=== PATIENT | male | born 1975 | race Caucasian/White ===

== ENCOUNTER 2021-07-21 07:53 | Emergency (ER) | payer MEDICARE, MEDICAID, SELFPAY ==
--- NOTE | ~2021-07-21 | US_ITS ---
EXAMINATION: US VENOUS ULTRASOUND WITH DOPPLER LOWER EXTREMITY, BILATERAL CLINICAL INFORMATION: Bilateral lower extremity pain and swelling. COMPARISON: None TECHNIQUE: Ultrasound of the deep veins is performed from the hip to the calf with compression sonography and color and pulse Doppler assessment. Spectral analysis with color-flow imaging is performed. FINDINGS: RIGHT: There is normal venous compression and respiratory variation and augmented flow. The visualized common femoral vein, superficial femoral vein, profunda femoral vein, popliteal vein, and the trifurcation region shows no evidence of deep venous thrombosis. There is no significant popliteal fossa cyst. Mild to moderate subcutaneous edema in the right calf. LEFT: There is normal venous compression and respiratory variation and augmented flow. The visualized common femoral vein, superficial femoral vein, profunda femoral vein, popliteal vein, and the trifurcation region shows no evidence of deep venous thrombosis. There is no significant popliteal fossa cyst. No significant soft tissue abnormality. If the patient's symptoms persist, followup ultrasound in 5 days 7 days might be of value to exclude proximal propagation from a non-visualized calf vein. US/US venous duplex LE BI IMPRESSION: No DVT demonstrated in the bilateral lower extremities.
--- NOTE | ~2021-07-21 | XR_ITS ---
EXAMINATION: XR CHEST CLINICAL INFORMATION: Lower extremity edema. COMPARISON: 09/13/2018 chest radiographs. TECHNIQUE: 2 views of the chest were obtained. FINDINGS: No significant abnormality is noted involving the heart, lungs, mediastinum, bony thorax or soft tissues. XR/XR chest 2V IMPRESSION: No acute cardiopulmonary process.
[2021-07-21 08:05] VITALS: BP 135/83; PULSE 81; RESP 18; TEMP 36.2; O2SAT 98; BMI 34.2
--- NOTE | 2021-07-21 08:18 | ED.GENADULT ---
HPI - General Adult General Chief complaint: Extremity Injury, Lower Stated complaint: both feet and legs swollen up to knees hands numb Time Seen by Provider: 07/21/21 08:18 Source: patient Mode of arrival: ambulatory Limitations: no limitations History of Present Illness HPI narrative: Patient is a 45 year old male presenting to the emergency department today with bilateral lower leg swelling and pain. Patient states that his mother in February 2021 and he has not been very active since. Patient states that he is a recovering IV drug user with his last use a couple weeks ago. Patient denies any cardiac history. Patient states that he does have Hepatitis. Patient denies any dizziness, lightheadedness, abdominal pain, nausea, vomiting, fever, chills, blurry vision, double vision, loss of vision, chest pain, difficulty breathing, shortness of breath, back pain, night sweats, pain with urination, increased urinary frequency, increased urinary urgency, blood in his urine or stool, syncope or a near syncopal episode, recent trauma or falls, bowel incontinence, bladder incontinence, bowel retention, bladder retention, or any other complaints at this time. Onset (ago): week(s) Location: left, right and lower extremity Radiation: non-radiation Severity: mild Severity scale (1-10): 3 Quality: dull Pain Consistency: constant Relieving factors: none Exacerbating factors: none Associated symptoms: denies other symptoms Treatments prior to arrival: none Related Data Allergies Allergy/AdvReac Type Severity Reaction Status Date / Time SEASONAL ALLERGIES Allergy Unknown UNKNOWN Uncoded 11/20/19 15:14 Review of Systems Constitutional: Constitutional: Reports no additional constitutional complaints, Denies chills, Denies fever(s) and Denies night sweats Eyes: Eyes: Reports no additional eye complaints, Denies blurry vision, Denies change in vision, Denies diplopia, Denies eye discharge, Denies loss of vision and Denies eye pain ENT: Denies dizziness Cardiovascular: Cardiovascular: Reports no additional cardiovascular complaints, Denies chest pain, Denies lightheadedness, Denies Loss of Consciousness and Denies dyspnea Comments: bilateral lower leg swelling Respiratory: Respiratory: Reports no additional respiratory complaints and Denies dyspnea Gastrointestinal: Gastrointestinal: Reports no additional gastrointestinal complaints, Denies abdominal pain, Denies melena, Denies hematochezia, Denies change in bowel habits and Denies change in stool character Genitourinary: Genitourinary: Reports no additional male genitourinary complaints, Denies hematuria, Denies oliguria, Denies difficulty urinating, Denies dysuria, Denies urinary frequency, Denies urinary hesitancy, Denies urinary incontinence and Denies urinary urgency Musculoskeletal: Musculoskeletal: Reports no additional musculoskeletal complaints, Denies numbness and Denies tingling Neurologic: Denies dizziness, Denies loss of vision, Denies numbness and Denies tingling Psychiatric: Psychiatric: Reports no additional psychiatric complaints Endocrine: Endocrine: Reports no additional endocrine complaints Hematologic/Lymphatic: Hematologic/Lymphatic: Reports no additional hematologic/lymphatic complaints Allergic/Immunologic: Allergic/Immunologic: Reports no additional allergic/immunologic complaints [facility] Past Medical History Attestation statement: The following information was validated with the patient. Source: old records reviewed Social History Social History Alcohol intake: never Patient Tobacco Use Status: Never used Tobacco Use of substances other than those prescribed or required for medical reasons: Yes Substance Use Type: Heroin Substance Use Frequency: Occasionally Any prior treatment program specific to substance use: Yes Advance Directives: No Advance Directives Information Provided: No Physical Exam ED Vital Signs: Vital Signs - 24 hr 07/21/21 08:05 07/21/21 08:24 Temperature 97.1 F 98.7 F Pulse Rate 81 74 Respiratory Rate 18 15 Blood Pressure 135/83 130/73 Pulse Oximetry 98 97 BMI result Body Mass Index 34.2 Const General: cooperative, no acute distress, alert and awake Nutritional Appearance: well nourished Orientation/consciousness: patient oriented x3 Limitations: no limitations [facility] Head: Yes normal to inspection and Yes atraumatic Ears: hearing grossly normal bilaterally and external ears normal General nose exam: Normal external nose present, no nasal discharge noted and no epistaxis Face and sinus: Yes normal facial exam, No abrasion and No laceration Mouth: Normal oral and palatal mucosa present, no drooling and no muffled voice Eyes General: appearance normal, both eyes and all related structures Periorbital: periorbital findings normal Eyelids: Yes eyelids normal Conjunctivae: conjunctivae normal Pupils: Equal, round and reactive pupils present EOM: EOMs intact bilaterally Neck Neck: Yes normal visual inspection, Yes full ROM and Yes no lymphadenopathy Chest Chest palpation & inspection: normal inspection of the chest Resp Effort & Inspection: normal respiratory effort and able to speak in complete sentences Auscultation: clear to auscultation bilaterally Cardio Rate: regular rate Rhythm: regular rhythm GI Inspection: Yes normal to inspection Neuro General: patient oriented x3 and moves all extremities Cranial nerves: Yes Equal, round and reactive pupils present Cognition (Neuro): normal cognition Motor exam (neuro): 5/5 motor strength present throughout Sensory Exam: Normal double simultaneous stimulation for sensation Coordination: [id number] test normal Extrem Other: bilateral lower leg edema 2+ General: Yes full ROM and Yes capillary refill normal Psych Appearance: grossly normal Mental Status: mental status grossly normal Affect: normal affect Attitude: cooperative Thought process: Normal thought process present Thought content: Normal thought content present Insight: Good insight present (Psych) Medical Decision Making MDM Narrative Medical decision making narrative: Patient is a 45 year old male presenting to the emergency department today with bilateral lower leg swelling. Patient's physical exam showed 2+ swelling in the lower extremities but was otherwise unremarkable. Patient's blood work was unremarkable. Patient's EKG was unremarkable. Patient's chest x-ray showed no acute process. Patient's bilateral lower extremity US showed no acute process. I explained my physical exam findings as well as all test results to the patient. I answered all questions asked by the patient. I stressed the importance of the patient taking his medication as prescribed. I stressed the importance of the patient following up with his primary care provider. I stressed the importance of the patient returning to the emergency department immediately if his symptoms were to worsen or if he were to develop any dizziness, shortness of breath, difficulty breathing, chest pain, blurry vision, loss of vision, nausea, vomiting, abdominal pain, fever, chills, back pain, or any other complaints. Patient verbalized agreement and understanding with this treatment plan and discharge. Differential Diagnosis Differential Diagnosis: dependent edema Medical Records Medical records reviewed: Yes I reviewed the patient's medical records. Lab Data Lab results reviewed: Yes I reviewed the patient's lab results. Result diagrams: 07/21/21 08:45 07/21/21 08:45 Labs: Lab Results 07/21/21 07/21/21 07/21/21 Range/Units 08:45 08:45 08:45 WBC 7.1 (4.8-10.8) X10*3/uL RBC 4.03 L (4.60-5.80) X10*6/uL Hgb 12.3 L (14.0-18.0) g/dl Hct 36.9 L (42.0-52.0) % MCV 91.6 (80.0-98.0) fL MCH 30.5 (27.0-33.0) pg MCHC 33.3 (31.0-36.0) g/dl RDW 13.1 (11.0-16.0) % Plt Count 114 L (160-400) X10*3/uL MPV 10.3 (9.4-12.4) fL Immature Gran % (Auto) 0.3 (0.0-0.4) % Neut % (Auto) 72.9 (45-73) % Lymph % (Auto) 18.3 L (20-40) % [place] % (Auto) 7.5 (2-11) % Eos % (Auto) 0.6 (0-4) % Baso % (Auto) 0.4 (0-2) % Lymph # (Auto) 1.3 (1.2-4.9) X10*3/uL [place] # (Auto) 0.5 (0.1-1.2) X10*3/uL Eos # (Auto) 0.0 (0.0-0.4) X10*3/uL Baso # (Auto) 0.0 (0.0-0.2) X10*3/uL Abs Immat Gran (auto) 0.02 (0.00-0.03) X10*3/uL Absolute Neuts (auto) 5.1 (2.0-8.3) x10*3/uL Absolute Nucleated RBC 0.000 (0.0-0.012) X10*3/uL Nucleated RBC % (auto) 0.0 (0.0-0.2) /100WBC Sodium 139 (135-145) mmol/L Potassium 4.3 (3.3-5.1) mmol/L Chloride 107 (96-108) mmol/L Carbon Dioxide 26 (22-29) mmol/L Anion Gap 10 L (12-20) BUN 8 L (9-16) mg/dL Creatinine 0.79 (0.5-1.4) mg/dL Estim Creat Clear Calc 139.6 Estimated GFR > 60 Random Glucose 93 (60-115) mg/dL Calcium 8.5 (8.4-10.2) mg/dL Magnesium 1.7 (1.6-2.6) mg/dL Total Bilirubin 0.8 (0.0-1.0) mg/dL AST 101 H (5-37) U/L ALT 109 H (0-40) U/L Alkaline Phosphatase 118 H (39-117) U/L B-Natriuretic Peptide 77 (<100) pg/mL Total Protein 6.0 L (6.5-8.0) g/dL Albumin 3.1 L (3.5-5.0) g/dL Lipase 11 (8-78) U/L Imaging Data Chest x-ray: Attestation: I personally reviewed and interpreted this imaging study as follows: My impression: No acute process. Radiologist's impression: EXAMINATION: XR CHEST CLINICAL INFORMATION: Lower extremity edema. COMPARISON: 09/13/2018 chest radiographs. TECHNIQUE: 2 views of the chest were obtained. FINDINGS: No significant abnormality is noted involving the heart, lungs, mediastinum, bony thorax or soft tissues. XR/XR chest 2V IMPRESSION: No acute cardiopulmonary process. Dictated By: Elian Zazueta MD Signed By: Electronically signed by Elian Zazueta MD 07/21/21 0857 Venous US: Attestation: I personally reviewed and interpreted this imaging study as follows: Radiologist's impression: EXAMINATION:? US VENOUS ULTRASOUND WITH DOPPLER LOWER EXTREMITY, BILATERAL CLINICAL INFORMATION:? Bilateral lower extremity pain and swelling. COMPARISON:? None TECHNIQUE: Ultrasound of the deep veins is performed from the hip to the calf with compression sonography and color and pulse Doppler assessment. Spectral analysis with color-flow imaging is performed. FINDINGS: RIGHT: There is normal venous compression and respiratory variation and augmented flow. The visualized common femoral vein, superficial femoral vein, profunda femoral vein, popliteal vein, and the trifurcation region shows no evidence of deep venous thrombosis. ? There is no significant popliteal fossa cyst. Mild to moderate subcutaneous edema in the right calf. LEFT: There is normal venous compression and respiratory variation and augmented flow. The visualized common femoral vein, superficial femoral vein, profunda femoral vein, popliteal vein, and the trifurcation region shows no evidence of deep venous thrombosis. ? There is no significant popliteal fossa cyst. No significant soft tissue abnormality. If the patient's symptoms persist, followup ultrasound in 5 days 7 days might be of value to exclude proximal propagation from a non-visualized calf vein. US/US venous duplex LE BI IMPRESSION: No DVT demonstrated in the bilateral lower extremities. Dictated By: Elian Zazueta MD Signed By: Electronically signed by Elian Zazueta MD 07/21/21 0926 ECG Data Attestation: I personally reviewed and interpreted this ECG as follows: Prior ECG tracings: available for review Interpretation: Vent. Rate: 075 BPM ? ? Atrial Rate: 075 BPM P-R Int: 182 ms? QRS Dur: 078 ms QT Int: 422 ms ? ? ? P-R-T Axes: 008 060 026 degrees QTc Int: 471 ms ? Normal sinus rhythm Normal ECG When compared with ECG of 13-SEP-2018 07:48, No significant change was found ? DD/ Discharge Plan Discharge Clinical Impression: Leg edema, Hepatitis Patient Disposition: Home, Self-Care Instructions: Edema (ED) Additional Instructions: Follow up with your primary care provider. Return to the emergency department immediately if your symptoms worsen or if you develop any dizziness, shortness of breath, difficulty breathing, chest pain, blurry vision, loss of vision, nausea, vomiting, abdominal pain, fever, chills, back pain, or any other complaints. Referrals: [facility] [Provider Group] [facility] [place] [Provider Group] [facility] [place] [facility] [Provider Group] Interventions: ED Discharge Assessment Last Done: 07/21/21 09:46 Discharge Date/Time: 07/21/21 09:47 Print Language: Montenegrin
--- NOTE | 2021-07-21 08:21 | ECG_ITS ---
Test Reason : bilat leg swelling Blood Pressure : / mmHG Vent. Rate : 075 BPM Atrial Rate : 075 BPM P-R Int : 182 ms QRS Dur : 078 ms QT Int : 422 ms P-R-T Axes : 008 060 026 degrees QTc Int : 471 ms Normal sinus rhythm Normal ECG When compared with ECG of 13-SEP-2018 07:48, No significant change was found Referred By: Sabina Moreira Electronically Signed By:RAVI BRAVO
[2021-07-21 08:24] VITALS: BP 130/73; PULSE 74; RESP 15; TEMP 37.1; O2SAT 97
[2021-07-21 08:49] LABS: MANUAL DIFF FLAG NO
[2021-07-21 08:53] LABS: Basophils Percent Auto 0.4 % (0-2); Eosinophils Percent Auto 0.6 % (0-4); Hematocrit 36.9 % (42.0-52.0); Hemoglobin 12.3 g/dl (14.0-18.0); Imm Gran Abs Auto 0.02 X10*3/uL (0.00-0.03); Imm Gran Pct Auto 0.3 % (0.0-0.4); Lymphocytes Absolute Auto 1.3 X10*3/uL (1.2-4.9); Lymphocytes Percent Auto 18.3 % (20-40); Mean Corpuscular HGB Conc 33.3 g/dl (31.0-36.0); Mean Corpuscular Hemoglobin 30.5 pg (27.0-33.0); Mean Corpuscular Volume 91.6 fL (80.0-98.0); Mean Platelet Volume 10.3 fL (9.4-12.4); Monocytes Absolute Auto 0.5 X10*3/uL (0.1-1.2); Monocytes Percent Auto 7.5 % (2-11); Neutrophils Absolute Auto 5.1 x10*3/uL (2.0-8.3); Neutrophils Percent Auto 72.9 % (45-73); Platelet Count 114 X10*3/uL (160-400); Red Blood Count 4.03 X10*6/uL (4.60-5.80); Red Cell Distribution Width 13.1 % (11.0-16.0); White Blood Count 7.1 X10*3/uL (4.8-10.8)
[2021-07-21 09:11] LABS: Alanine Aminotransferase 109 U/L (0-40); Albumin Level 3.1 g/dL (3.5-5.0); Alkaline Phosphatase 118 U/L (39-117); Anion Gap 10 (12-20); Aspartate Amino Transferase 101 U/L (5-37); Bilirubin Total 0.8 mg/dL (0.0-1.0); Blood Urea Nitrogen 8 mg/dL (9-16); Calcium 8.5 mg/dL (8.4-10.2); Carbon Dioxide 26 mmol/L (22-29); Chloride 107 mmol/L (96-108); Creatinine Clr Calc Pharmacy 139.6; Estimated Glomerular Filt Rate > 60; Glucose Random 93 mg/dL (60-115); Lipase 11 U/L (8-78); Magnesium 1.7 mg/dL (1.6-2.6); Potassium 4.3 mmol/L (3.3-5.1); Sodium 139 mmol/L (135-145)
[2021-07-21 09:14] LABS: B Type Natriuretic Peptide 77 pg/mL (<100)
== END 2021-07-21 09:47 | disposition home or self-care (01) ==
PROVIDERS: Physician Assistant Medical; Emergency Provider Emergency Medicine
DX: R60.0 Localized edema (principal); K75.9 Inflammatory liver disease, unspecified; M79.605 Pain in left leg; M79.604 Pain in right leg; Z79.899 Other long term (current) drug therapy
CPT/HCPCS: 36415; 71046; 80053; 83690; 83735; 83880; 85025; 93005; 93970; 99284

== ENCOUNTER → 2021-10-20 08:16 | Outpatient (REF) | payer MEDICARE, MEDICAID, SELFPAY ==
--- NOTE | 2021-10-20 08:19 | CA_ITS ---
Transthoracic Echocardiogram Patient (Last, First, Middle): Jose Montana J Gender: Male Date of : 1975 Age: 46 Procedure Date: 10/20/2021 Procedure Type: Transthoracic Echocardiogram Location: OP Height: 172.72 cm Weight: 122.47 kg BSA: 2.32 m2 Heart Rate: 77 bpm BP: 128 / 60 mmHg Gambreler: SB Referring MD: Priti THIBODEAUX Vehicle Upholsterer: Tashi Alvarado MD Symptoms: R60.0 - Localized edema Study Quality: Adequate ECG Rhythm: Sinus Conclusions: - Essentially normal study Findings Left Ventricle Normal left ventricular size, thickness, and systolic function. The visually estimated ejection fraction is between 60-65%. Spectral Doppler is indicative of a normal filling pattern. Peak GLS is -18.5%, within normal limits. Right Ventricle Normal right ventricular cavity size and systolic function. Atria Both atria are normal in size. Interatrial shunt cannot be excluded. Aortic Valve The aortic valve structure and function is likely normal. There is no aortic valve stenosis. There is no aortic valve regurgitation. Mitral Valve Normal mitral valve structure and function. There is trace mitral valve regurgitation. There is no mitral valve stenosis. Pulmonic Valve The pulmonic valve was not well visualized. Tricuspid Valve Likely normal tricuspid valve structure and function. There is trace tricuspid valve regurgitation. The right ventricular systolic pressure is normal. The right ventricular systolic pressure is 24 mmHg. Normal right atrial pressure. There is no evidence of pulmonary hypertension. Great Vessels All visible segments of the aorta are normal in size. The visualized portions of the pulmonary artery and branches are normal. Venous The inferior vena cava is normal in size and collapses greater than 50% with inspiration. Pericardium/Pleural There is no evidence of pericardial effusion. Prior Study Comparison No prior study available for comparison. Measurements 2D Linear Measurements IVSd: 1.07 0.6-0.9/0.6-1.0 cm LVIDd: 4.16 3.9-5.3/4.2-5.9 cm LVIDd Index: 1.79 2.4-3.2/2.2-3.1 cm/m2 LVIDs: 2.63 2.0-3.6 cm LVPWd: 0.88 0.7-1.1 cm LA Diam: 4.20 2.7-3.8/3.0-4.0 cm LAIDs Index: 1.81 1.5-2.3 cm/m2 LV Mass: 162.24 67-162/88-224 g LV Mass Index: 69.93 43-95/49-115 g/m2 LVOT Diam: 2.10 3.0+(-)1.3 cm 2D Systolic Function EF 4C: 52.40 >55% EF 2C: 59.50 >55% Mitral Valve MV Pk E: 1.10 MV PK A: 0.58 MV Decel Time: 115.00 E/A: 1.90 E'Lateral: 13.40 E'Medial: 8.38 E/E' Med: 13.10 E/E' Lat: 8.20 PHT: 34.00 MVA PHT: 6.47 Decel [place]: 9.59 Aortic Valve AoV Pk Sonny: 1.52 AoV Mn Sonny: 1.05 AoV VTI: 0.30 AoV Pk Grad: 9.00 Aov Mn Grad: 5.00 AKIN Cont.VTI: 3.05 LVOT LVOT Pk Sonny: 1.25 LVOT Mn Sonny: 0.89 LVOT VTI: 0.27 LVOT Pk Grad: 6.00 LVOT Mn Grad: 4.00 LVOT Diam: 2.10 LVOT Area: 3.46 Diastolic Function MV Pk E: 1.10 MV Pk A: 0.58 E/A: 1.90 E'Medial: 8.38 E/E' Med: 13.10 E' Laterial: 13.40 E/E' Lat: 8.20 Right Ventricle TAPSE (mm): 26.70 TVS' Sonny: 14.80 Tricuspid Valve TR Pk Sonny: 2.27 TR Pk Grad: 21.00 RA Press: 3.00 RVSP: 24.00 Great Vessels Aorta Sinus of Valsalva: 2.90 2.0-3.5 cm Ao Asc: 2.80 2.1-3.4 cm Ao Arch: 2.60 Pulmonary Veins Pulm Vein S/D 1.30 Pulmonary Valve PV Pk Sonny: 1.34 Peak PV Grad: 7.00 Updated in Other Vendor System with Status of Final Tashi Alvarado MD electronically signed on 10/20/2021 11:09:00 AM with status of Final
== END ==
LOC: HO.CARD 08:16
PROVIDERS: PCP Nurse Practitioner Family; Visit Provider Nurse Practitioner Family
DX: R60.0 Localized edema (principal)
CPT/HCPCS: 93306; 93356

== ENCOUNTER 2021-11-17 06:20 | Outpatient (REF) | payer MEDICARE, MEDICAID, SELFPAY ==
[2021-11-17 06:38] LABS: MANUAL DIFF FLAG NO
[2021-11-17 07:25] LABS: Basophils Percent Auto 0.5 % (0-2); Eosinophils Absolute Auto 0.1 X10*3/uL (0.0-0.4); Eosinophils Percent Auto 2.1 % (0-4); Hematocrit 38.6 % (42.0-52.0); Hemoglobin 12.8 g/dl (14.0-18.0); Imm Gran Abs Auto 0.01 X10*3/uL (0.00-0.03); Imm Gran Pct Auto 0.2 % (0.0-0.4); Lymphocytes Absolute Auto 2.2 X10*3/uL (1.2-4.9); Lymphocytes Percent Auto 38.1 % (20-40); Mean Corpuscular HGB Conc 33.2 g/dl (31.0-36.0); Mean Corpuscular Volume 93.5 fL (80.0-98.0); Mean Platelet Volume 10.6 fL (9.4-12.4); Monocytes Absolute Auto 0.5 X10*3/uL (0.1-1.2); Neutrophils Absolute Auto 2.9 x10*3/uL (2.0-8.3); Neutrophils Percent Auto 51.1 % (45-73); Platelet Count 132 X10*3/uL (160-400); Red Blood Count 4.13 X10*6/uL (4.60-5.80); Red Cell Distribution Width 13.5 % (11.0-16.0); White Blood Count 5.7 X10*3/uL (4.8-10.8)
[2021-11-17 07:57] LABS: Alanine Aminotransferase 97 U/L (0-40); Albumin Level 3.2 g/dL (3.5-5.0); Alkaline Phosphatase 138 U/L (39-117); Anion Gap 13 (12-20); Aspartate Amino Transferase 127 U/L (5-37); Bilirubin Total 1.2 mg/dL (0.0-1.0); Blood Urea Nitrogen 5 mg/dL (9-16); Calcium 8.4 mg/dL (8.4-10.2); Carbon Dioxide 26 mmol/L (22-29); Chloride 105 mmol/L (96-108); Cholesterol 169 mg/dL; Estimated Glomerular Filt Rate > 60; Glucose Fasting 79 mg/dL (60-99); HDL Cholesterol 38 mg/dL; LDL Cholesterol Calculated 110 mg/dl; Lipase 14 U/L (8-78); Potassium 3.6 mmol/L (3.3-5.1); Sodium 140 mmol/L (135-145); Total Protein 5.9 g/dL (6.5-8.0); Triglycerides 105 mg/dL
[2021-11-17 08:06] LABS: HBS Num1 0.82 mIU/mL (0-7.99); HBc Num1 0.07 S/CO (0.00-0.79); Hepatitis B Core Antibody Nonreactive (Nonreactive); Hepatitis B Surface Antigen Negative (Negative); ~HepC Num1 14.85 S/CO (0.00-0.79); ~Hepatitis B Surface Antibody NONREACTIVE (Nonreactive); ~Hepatitis C Antibody Reactive (Nonreactive)
[2021-11-17 08:15] LABS: TSH reflex Free T4 1.89 uIU/mL (0.32-4.0); Vitamin D 25-OH Total 8.3 ng/mL (>30)
[2021-11-17 08:23] LABS: Folate 13.7 ng/mL (> or = 4.0); Vitamin B12 588 pg/mL (200-900)
[2021-11-18 07:38] LABS: Hepatitis A Antibody IgM 0.18 Index (0-0.79); ~Hepatitis A Antibody IgM Nonreactive (Nonreactive)
== END 2021-11-17 06:21 | disposition home or self-care (01) ==
LOC: HO.LAB 06:20
PROVIDERS: PCP Nurse Practitioner Family; Visit Provider Nurse Practitioner Family
DX: K59.00 Constipation, unspecified (principal); B19.20 Unspecified viral hepatitis C without hepatic coma; E55.9 Vitamin D deficiency, unspecified; Z76.89 Persons encountering health services in other specified circumstances; Z13.220 Encounter for screening for lipoid disorders; Z13.29 Encounter for screening for other suspected endocrine disorder
CPT/HCPCS: 36415; 80053; 80061; 82306; 82607; 82746; 83690; 84443; 85025; 86704; 86706; 86709; 86803; 87340

== ENCOUNTER 2022-01-06 10:05 | Outpatient (REF) | payer MEDICARE, MEDICAID, SELFPAY ==
--- NOTE | ~2022-01-06 | US_ITS ---
EXAMINATION: US ABDOMEN LIMITED CLINICAL INFORMATION: Unspecified viral hepatitis C without hepatic coma. COMPARISON: X-ray abdomen [facility] 09/15/2018. CT abdomen and pelvis 09/13/2018. TECHNIQUE: Real-time imaging of the right upper quadrant abdominal viscera. FINDINGS: PANCREAS: The head and the body the pancreas is homogeneous echotexture. The tail is obscured by overlying gas. LIVER: The liver is normal in size. The liver contour is normal. The liver echogenicity is increased. No focal hepatic lesion. There is no intrahepatic biliary duct dilatation seen. GALLBLADDER: There is a prominent fold seen in the gallbladder with echogenic foci and twinkle artifact. The gallbladder is physiologically distended without evidence of stones, sludge, polyps, wall thickening or pericholecystic fluid. COMMON BILE DUCT: Normal in caliber measuring 0.3 cm in diameter. RIGHT KIDNEY: Normal. No hydronephrosis. No renal calculi or focal parenchymal lesions. The kidney measures 10.2 cm in maximum dimension. FREE FLUID: None. US/US abdomen limited IMPRESSION: Slightly echogenic liver but otherwise unremarkable. Gallbladder, head and body the pancreas and right kidney are unremarkable. Tail of the pancreas is not seen.
== END 2022-01-06 10:06 | disposition home or self-care (01) ==
LOC: HO.US 10:05
PROVIDERS: Visit Provider Nurse Practitioner Family
DX: B19.20 Unspecified viral hepatitis C without hepatic coma (principal)
CPT/HCPCS: 76705

== ENCOUNTER 2022-02-22 09:34 | Outpatient (REF) | payer MEDICARE, MEDICAID, SELFPAY ==
[2022-02-22 10:58] LABS: Hematocrit 41.4 % (42.0-52.0); Hemoglobin 13.7 g/dl (14.0-18.0); Mean Corpuscular HGB Conc 33.1 g/dl (31.0-36.0); Mean Corpuscular Hemoglobin 31.9 pg (27.0-33.0); Mean Corpuscular Volume 96.5 fL (80.0-98.0); Mean Platelet Volume 11.8 fL (9.4-12.4); Platelet Count 104 X10*3/uL (160-400); Red Blood Count 4.29 X10*6/uL (4.60-5.80); Red Cell Distribution Width 13.8 % (11.0-16.0); White Blood Count 6.7 X10*3/uL (4.8-10.8)
[2022-02-22 11:32] LABS: Iron 265 mcg/dL (45-160); Percent Iron Saturation 91 % (15-50); Total Iron Binding Capacity 290 mcg/dL (228-428); Unsaturated Iron Binding < 25 ug/dL; Vitamin D 25-OH Total 17.5 ng/mL (>30)
[2022-02-23 20:54] LABS: HCV RNA PCR Qn 2760000 IU/mL (NOT DETECTED); HCV RNA PCR Qn 6.44 Log IU/mL (NOT DETECTED)
[2022-03-01 15:33] LABS: FIB-ALT 80 U/L (9-46); FIB-Alpha-2-Macroglobulin 200 mg/dL (106-279); FIB-Apolipoprotein A1 144 mg/dL (94-176); FIB-GGT 106 U/L (3-95); FIB-Haptoglobin <8 mg/dL (43-212); Liver Fibrosis Score 0.79; Liver Fibrosis Stage F4; Nec Inflam Act Grade A3; Nec Inflam Act Score 0.66
[2022-03-03 19:43] LABS: HCV Genotype LiPA 2
== END 2022-02-22 09:35 | disposition home or self-care (01) ==
LOC: HO.LAB 09:34
PROVIDERS: Absent Provider Nurse Practitioner Family; PCP Nurse Practitioner Family; Visit Provider Internal Medicine
DX: B19.20 Unspecified viral hepatitis C without hepatic coma (principal); D64.9 Anemia, unspecified; D69.6 Thrombocytopenia, unspecified; E55.9 Vitamin D deficiency, unspecified
CPT/HCPCS: 36415; 81596; 82306; 83540; 85027; 87522; 87902

== ENCOUNTER → 2022-03-03 13:26 | Outpatient (BNVA) | payer MEDICARE, MEDICAID, SELFPAY | PROVIDERS: PCP Nurse Practitioner Family; Visit Provider Internal Medicine | DX: B19.20 Unspecified viral hepatitis C without hepatic coma (principal) | CPT/HCPCS: 99202 ==

== ENCOUNTER → 2022-03-09 09:03 | Outpatient (BNVA) | payer MEDICARE, MEDICAID, SELFPAY | PROVIDERS: PCP Nurse Practitioner Family; Referring Provider Nurse Practitioner Family; Visit Provider Internal Medicine Gastroenterology | DX: K74.60 Unspecified cirrhosis of liver (principal); B19.20 Unspecified viral hepatitis C without hepatic coma; R60.0 Localized edema; E66.01 Morbid (severe) obesity due to excess calories; E55.9 Vitamin D deficiency, unspecified; Z68.41 Body mass index [BMI] 40.0-44.9, adult; Z79.891 Long term (current) use of opiate analgesic | CPT/HCPCS: 99202 ==

== ENCOUNTER 2022-03-14 08:30 | Outpatient (REF) | payer MEDICARE, MEDICAID, SELFPAY ==
[2022-03-14 08:53] LABS: MANUAL DIFF FLAG NO
[2022-03-14 09:04] LABS: Ammonia 76 umol/L (13-55)
[2022-03-14 09:05] LABS: INTERNATIONAL NORM RATIO 1.4 (0.9-1.1); Prothrombin Time 15.8 SEC (10.0-13.1)
[2022-03-14 09:07] LABS: Partial Thromboplastin Time 37.6 SEC (26.0-36.4)
[2022-03-14 09:21] LABS: Basophils Percent Auto 0.5 % (0-2); Eosinophils Absolute Auto 0.1 X10*3/uL (0.0-0.4); Eosinophils Percent Auto 1.1 % (0-4); Hematocrit 40.6 % (42.0-52.0); Hemoglobin 13.7 g/dl (14.0-18.0); Imm Gran Abs Auto 0.01 X10*3/uL (0.00-0.03); Imm Gran Pct Auto 0.2 % (0.0-0.4); Lymphocytes Absolute Auto 1.5 X10*3/uL (1.2-4.9); Lymphocytes Percent Auto 27.9 % (20-40); Mean Corpuscular HGB Conc 33.7 g/dl (31.0-36.0); Mean Corpuscular Hemoglobin 32.5 pg (27.0-33.0); Mean Corpuscular Volume 96.4 fL (80.0-98.0); Mean Platelet Volume 11.3 fL (9.4-12.4); Monocytes Absolute Auto 0.3 X10*3/uL (0.1-1.2); Monocytes Percent Auto 4.9 % (2-11); Neutrophils Absolute Auto 3.6 x10*3/uL (2.0-8.3); Neutrophils Percent Auto 65.4 % (45-73); Platelet Count 106 X10*3/uL (160-400); Red Blood Count 4.21 X10*6/uL (4.60-5.80); White Blood Count 5.5 X10*3/uL (4.8-10.8)
[2022-03-14 09:22] LABS: Alanine Aminotransferase 94 U/L (0-40); Albumin Level 3.4 g/dL (3.5-5.0); Alkaline Phosphatase 115 U/L (39-117); Anion Gap 13 (12-20); Aspartate Amino Transferase 108 U/L (5-37); Bilirubin Total 1.8 mg/dL (0.0-1.0); Blood Urea Nitrogen 8 mg/dL (9-16); Carbon Dioxide 26 mmol/L (22-29); Chloride 105 mmol/L (96-108); Estimated Glomerular Filt Rate > 60; Glucose Random 109 mg/dL (60-115); Sodium 140 mmol/L (135-145); Total Protein 6.2 g/dL (6.5-8.0)
[2022-03-14 09:36] LABS: Ferritin 84 ng/mL (20-250)
[2022-03-15 08:22] LABS: Hepatitis A Antibody IgG Nonreactive (Nonreactive); ~Hepatitis A Antibody IgG 0.28 S/CO (0.00-0.99)
[2022-03-15 13:08] LABS: HCV RNA PCR Qn 4200000 IU/mL (NOT DETECTED); HCV RNA PCR Qn 6.62 Log IU/mL (NOT DETECTED)
[2022-03-16 11:28] LABS: Alpha Fetoprotein 31.7 ng/mL (<6.1)
[2022-03-16 13:03] LABS: Ceruloplasmin 22 mg/dL (18-36)
[2022-03-16 13:17] LABS: Anti Nuclear Antibody Screen NEGATIVE (NEGATIVE)
[2022-03-17 17:47] LABS: Zinc 56 mcg/dL (60-130)
[2022-03-21 08:04] LABS: HCV Genotype LiPA 2
[2022-03-25 15:38] LABS: A1A Clinical Indication NG; A1A Referring Physician NG
== END 2022-03-14 08:31 | disposition home or self-care (01) ==
LOC: HO.LAB 08:30
PROVIDERS: PCP Nurse Practitioner Family; Visit Provider Internal Medicine Gastroenterology
DX: K74.60 Unspecified cirrhosis of liver (principal); D69.6 Thrombocytopenia, unspecified; B19.20 Unspecified viral hepatitis C without hepatic coma
CPT/HCPCS: 36415; 80053; 81256; 82104; 82105; 82140; 82390; 82728; 84630; 85025; 85610; 85730; 86038; 86039; 86708; 87522; 87902

== ENCOUNTER → 2022-04-06 13:48 | Outpatient (BNVA) | payer MEDICARE, MEDICAID, SELFPAY | PROVIDERS: PCP Nurse Practitioner Family; Referring Provider Nurse Practitioner Family; Visit Provider Internal Medicine Gastroenterology | DX: K74.60 Unspecified cirrhosis of liver (principal) | CPT/HCPCS: 99212 ==

== ENCOUNTER 2022-04-17 09:48 | Outpatient (REF) | payer MEDICARE, MEDICAID, SELFPAY ==
[2022-04-17 11:40] LABS: Alanine Aminotransferase 76 U/L (0-40); Albumin Level 3.5 g/dL (3.5-5.0); Alkaline Phosphatase 105 U/L (39-117); Anion Gap 15 (12-20); Aspartate Amino Transferase 105 U/L (5-37); Bilirubin Total 2.5 mg/dL (0.0-1.0); Blood Urea Nitrogen 10 mg/dL (9-16); Calcium 9.1 mg/dL (8.4-10.2); Carbon Dioxide 27 mmol/L (22-29); Chloride 102 mmol/L (96-108); Estimated Glomerular Filt Rate > 60; Glucose Random 96 mg/dL (60-115); Sodium 140 mmol/L (135-145); Total Protein 6.5 g/dL (6.5-8.0)
[2022-04-17 12:00] LABS: Vitamin D 25-OH Total 16.1 ng/mL (>30)
[2022-04-17 12:40] LABS: HIV AB/AG Nonreactive (Nonreactive); HIV Num 1 0.09 S/CO (0.00-0.99)
[2022-04-19 14:54] LABS: HCV Log PCR 6.31 Log IU/mL (NOT DETECTED); HepC Viral Load 2030000 IU/mL (NOT DETECTED)
[2022-04-21 15:28] LABS: Hepatitis C Genotype 2
== END 2022-04-17 09:49 | disposition home or self-care (01) ==
LOC: HO.LAB 09:48
PROVIDERS: Nurse Practitioner Family; Visit Provider Internal Medicine Gastroenterology
DX: Z11.4 Encounter for screening for human immunodeficiency virus [HIV] (principal); K74.60 Unspecified cirrhosis of liver; B19.20 Unspecified viral hepatitis C without hepatic coma; R79.89 Other specified abnormal findings of blood chemistry
CPT/HCPCS: 36415; 80053; 82306; 87389; 87522; 87902

== ENCOUNTER → 2022-05-04 11:51 | Outpatient (BNVA) | payer MEDICARE, MEDICAID, SELFPAY | PROVIDERS: PCP Nurse Practitioner Family; Visit Provider Internal Medicine Gastroenterology | DX: K74.60 Unspecified cirrhosis of liver (principal) | CPT/HCPCS: 99212 ==

== ENCOUNTER 2022-05-15 07:13 | Outpatient (REF) | payer MEDICARE, MEDICAID, SELFPAY ==
[2022-05-15 08:26] LABS: Hematocrit 40.9 % (42.0-52.0); Hemoglobin 13.9 g/dl (14.0-18.0); Mean Corpuscular Hemoglobin 32.8 pg (27.0-33.0); Mean Corpuscular Volume 96.5 fL (80.0-98.0); Mean Platelet Volume 11.2 fL (9.4-12.4); Platelet Count 150 X10*3/uL (160-400); Red Blood Count 4.24 X10*6/uL (4.60-5.80); Red Cell Distribution Width 13.2 % (11.0-16.0); White Blood Count 4.8 X10*3/uL (4.8-10.8)
[2022-05-15 08:50] LABS: Alanine Aminotransferase 78 U/L (0-40); Albumin Level 3.6 g/dL (3.5-5.0); Alkaline Phosphatase 68 U/L (39-117); Anion Gap 15 (12-20); Aspartate Amino Transferase 102 U/L (5-37); Blood Urea Nitrogen 7 mg/dL (9-16); Calcium 8.7 mg/dL (8.4-10.2); Carbon Dioxide 22 mmol/L (22-29); Chloride 106 mmol/L (96-108); Estimated Glomerular Filt Rate > 60; Glucose Random 87 mg/dL (60-115); Potassium 3.8 mmol/L (3.3-5.1); Sodium 139 mmol/L (135-145); Total Protein 6.2 g/dL (6.5-8.0)
== END 2022-05-15 07:14 | disposition home or self-care (01) ==
LOC: HO.LAB 07:13
PROVIDERS: PCP Nurse Practitioner Family; Visit Provider Internal Medicine Gastroenterology
DX: K74.60 Unspecified cirrhosis of liver (principal)
CPT/HCPCS: 36415; 80053; 85027

== ENCOUNTER → 2022-06-01 12:08 | Outpatient (BNVA) | payer MEDICARE, MEDICAID, SELFPAY | PROVIDERS: PCP Nurse Practitioner Family; Visit Provider Internal Medicine Gastroenterology | DX: K74.60 Unspecified cirrhosis of liver (principal); R79.89 Other specified abnormal findings of blood chemistry; B19.20 Unspecified viral hepatitis C without hepatic coma; E66.01 Morbid (severe) obesity due to excess calories; Z68.36 Body mass index [BMI] 36.0-36.9, adult | CPT/HCPCS: 99212 ==

== ENCOUNTER 2022-06-05 07:26 | Outpatient (REF) | payer MEDICARE, MEDICAID, SELFPAY ==
--- NOTE | ~2022-06-05 | CT_ITS ---
EXAMINATION: CT ABDOMEN WITHOUT AND WITH CONTRAST CLINICAL INFORMATION: Chronic hepatitis. COMPARISON: None available. TECHNIQUE: Contiguous axial thin section helical images of the abdomen were performed before and after the administration of oral contrast and 85 mL of Omnipaque 350 intravenous contrast. The data set was reformatted in the coronal and sagittal planes and reviewed on an independent workstation. This CT examination was performed using dose optimization techniques as appropriate, variously including the following: *Automated exposure control *Adjustment of mA and/or kV according to patient size (this includes techniques or standardized protocols for targeted exams where dose is matched to indication/reason for exam; i.e. extremities or head) *Use of iterative reconstruction technique DLP: 1024 mGy-cm FINDINGS: LUNG BASES: The lung bases are clear. The heart size is normal. LIVER, GALLBLADDER, AND BILIARY TREE: The liver is normal in size, contour and hypoattenuation. No abnormal enhancing mass or intrahepatic ductal dilatation seen. PANCREAS: The pancreas is homogeneous in density and normal size. Peripancreatic fat borders are preserved. SPLEEN: The spleen is normal size and appears unremarkable. ADRENAL GLANDS AND KIDNEYS: Bilateral adrenal glands are normal. No radiopaque renal calculi or hydronephrosis seen. Postcontrast, the nephrograms are symmetrical and normal. BOWEL LOOPS: There is scattered stool seen throughout the colon consistent with moderate constipation. The small bowel loops are normal caliber. Partially visualized appendix is normal. LYMPH NODES: Normal. VASCULAR: Unremarkable. BONES: No aggressive lytic or sclerotic process. CT/CT abdomen wo/w IV con IMPRESSION: 1. Mild hepatic steatosis. No abnormal enhancing mass or intrahepatic ductal dilatation seen. 2. Mild constipation. Fleischner guidelines were followed.
[2022-06-05 08:28] LABS: INTERNATIONAL NORM RATIO 1.4 (0.9-1.1); Prothrombin Time 16.1 SEC (10.0-13.1)
[2022-06-05 08:31] LABS: Hematocrit 38.7 % (42.0-52.0); Hemoglobin 13.3 g/dl (14.0-18.0); Mean Corpuscular HGB Conc 34.4 g/dl (31.0-36.0); Mean Corpuscular Hemoglobin 32.7 pg (27.0-33.0); Mean Corpuscular Volume 95.1 fL (80.0-98.0); Mean Platelet Volume 11.7 fL (9.4-12.4); Platelet Count 107 X10*3/uL (160-400); Red Blood Count 4.07 X10*6/uL (4.60-5.80); Red Cell Distribution Width 12.7 % (11.0-16.0); White Blood Count 3.7 X10*3/uL (4.8-10.8)
[2022-06-05 08:51] LABS: Alanine Aminotransferase 97 U/L (0-40); Albumin Level 3.5 g/dL (3.5-5.0); Alkaline Phosphatase 72 U/L (39-117); Anion Gap 10 (12-20); Aspartate Amino Transferase 128 U/L (5-37); Bilirubin Total 1.2 mg/dL (0.0-1.0); Blood Urea Nitrogen 8 mg/dL (9-16); Calcium 9.5 mg/dL (8.4-10.2); Carbon Dioxide 28 mmol/L (22-29); Chloride 106 mmol/L (96-108); Estimated Glomerular Filt Rate > 60; Glucose Random 92 mg/dL (60-115); Potassium 3.9 mmol/L (3.3-5.1); Sodium 140 mmol/L (135-145); Total Protein 5.9 g/dL (6.5-8.0)
[2022-06-05] MEDS: iohexoL 350 MG/ML 100 ML INFUS..BTL 85 ML IV (10:15)
== END 2022-06-05 07:27 | disposition home or self-care (01) ==
LOC: HO.CT 07:26
PROVIDERS: Absent Provider Internal Medicine Gastroenterology; PCP Nurse Practitioner Family; Visit Provider Internal Medicine Transplant Hepatology
DX: B18.2 Chronic viral hepatitis C (principal); K74.60 Unspecified cirrhosis of liver
CPT/HCPCS: 36415; 74170; 80053; 85027; 85610; Q9967

== ENCOUNTER 2022-07-07 07:38 | Outpatient (REF) | payer MEDICARE, MEDICAID, SELFPAY ==
[2022-07-07 07:55] LABS: MANUAL DIFF FLAG NO
[2022-07-07 08:36] LABS: Basophils Percent Auto 0.7 % (0-2); Eosinophils Absolute Auto 0.2 X10*3/uL (0.0-0.4); Eosinophils Percent Auto 2.7 % (0-4); Hemoglobin 13.4 g/dl (14.0-18.0); Imm Gran Abs Auto 0.01 X10*3/uL (0.00-0.03); Imm Gran Pct Auto 0.2 % (0.0-0.4); Lymphocytes Absolute Auto 2.2 X10*3/uL (1.2-4.9); Lymphocytes Percent Auto 38.1 % (20-40); Mean Corpuscular HGB Conc 35.3 g/dl (31.0-36.0); Mean Corpuscular Hemoglobin 32.4 pg (27.0-33.0); Mean Corpuscular Volume 91.8 fL (80.0-98.0); Mean Platelet Volume 11.7 fL (9.4-12.4); Monocytes Absolute Auto 0.4 X10*3/uL (0.1-1.2); Monocytes Percent Auto 7.2 % (2-11); Neutrophils Percent Auto 51.1 % (45-73); Platelet Count 118 X10*3/uL (160-400); Red Blood Count 4.14 X10*6/uL (4.60-5.80); Red Cell Distribution Width 12.7 % (11.0-16.0); White Blood Count 5.8 X10*3/uL (4.8-10.8)
[2022-07-07 08:42] LABS: INTERNATIONAL NORM RATIO 1.3 (0.9-1.1); Prothrombin Time 14.9 SEC (10.0-13.1)
[2022-07-07 09:06] LABS: Alanine Aminotransferase 18 U/L (0-40); Albumin Level 3.5 g/dL (3.5-5.0); Alkaline Phosphatase 70 U/L (39-117); Anion Gap 9 (12-20); Aspartate Amino Transferase 29 U/L (5-37); Blood Urea Nitrogen 6 mg/dL (9-16); Calcium 8.9 mg/dL (8.4-10.2); Carbon Dioxide 28 mmol/L (22-29); Chloride 107 mmol/L (96-108); Estimated Glomerular Filt Rate > 60; Glucose Random 109 mg/dL (60-115); Potassium 3.7 mmol/L (3.3-5.1); Sodium 140 mmol/L (135-145); Total Protein 5.9 g/dL (6.5-8.0)
[2022-07-07 09:20] LABS: Vitamin D 25-OH Total 26.1 ng/mL (>30)
== END 2022-07-07 07:39 | disposition home or self-care (01) ==
LOC: HO.LAB 07:38
PROVIDERS: Nurse Practitioner Family; Visit Provider Internal Medicine Gastroenterology
DX: K74.60 Unspecified cirrhosis of liver (principal); R79.89 Other specified abnormal findings of blood chemistry
CPT/HCPCS: 36415; 80053; 82306; 85025; 85610

== ENCOUNTER → 2022-07-17 07:18 | Outpatient (BNVA) | payer MEDICARE, MEDICAID, SELFPAY | PROVIDERS: PCP Nurse Practitioner Family; Visit Provider Internal Medicine Gastroenterology | DX: K72.10 Chronic hepatic failure without coma (principal); B18.2 Chronic viral hepatitis C; R14.0 Abdominal distension (gaseous); R60.0 Localized edema; R53.83 Other fatigue; E55.9 Vitamin D deficiency, unspecified; F11.20 Opioid dependence, uncomplicated; Z79.899 Other long term (current) drug therapy | CPT/HCPCS: Q3014 ==

== ENCOUNTER 2022-08-10 07:52 | Outpatient (REF) | payer MEDICARE, MEDICAID, SELFPAY ==
[2022-08-10 08:07] LABS: MANUAL DIFF FLAG NO
[2022-08-10 08:34] LABS: Basophils Percent Auto 0.7 % (0-2); Eosinophils Absolute Auto 0.1 X10*3/uL (0.0-0.4); Eosinophils Percent Auto 1.8 % (0-4); Hematocrit 38.4 % (42.0-52.0); Hemoglobin 13.4 g/dl (14.0-18.0); Imm Gran Abs Auto 0.01 X10*3/uL (0.00-0.03); Imm Gran Pct Auto 0.2 % (0.0-0.4); Lymphocytes Absolute Auto 1.9 X10*3/uL (1.2-4.9); Lymphocytes Percent Auto 34.3 % (20-40); Mean Corpuscular HGB Conc 34.9 g/dl (31.0-36.0); Mean Corpuscular Hemoglobin 32.4 pg (27.0-33.0); Mean Corpuscular Volume 92.8 fL (80.0-98.0); Mean Platelet Volume 11.7 fL (9.4-12.4); Monocytes Absolute Auto 0.4 X10*3/uL (0.1-1.2); Monocytes Percent Auto 6.8 % (2-11); Neutrophils Absolute Auto 3.1 x10*3/uL (2.0-8.3); Neutrophils Percent Auto 56.2 % (45-73); Platelet Count 122 X10*3/uL (160-400); Red Blood Count 4.14 X10*6/uL (4.60-5.80); Red Cell Distribution Width 13.2 % (11.0-16.0); White Blood Count 5.4 X10*3/uL (4.8-10.8)
[2022-08-10 09:00] LABS: Alanine Aminotransferase 19 U/L (0-40); Albumin Level 3.6 g/dL (3.5-5.0); Alkaline Phosphatase 84 U/L (39-117); Anion Gap 13 (12-20); Aspartate Amino Transferase 27 U/L (5-37); Blood Urea Nitrogen 7 mg/dL (9-16); Calcium 9.2 mg/dL (8.4-10.2); Carbon Dioxide 27 mmol/L (22-29); Chloride 106 mmol/L (96-108); Estimated Glomerular Filt Rate > 60; Glucose Random 120 mg/dL (60-115); Potassium 3.8 mmol/L (3.3-5.1); Sodium 142 mmol/L (135-145); Total Protein 6.2 g/dL (6.5-8.0)
[2022-08-12 20:38] LABS: HCV Log PCR <1.18 NOT DETECTED Log IU/mL (NOT DETECTED); HepC Viral Load <15 NOT DETECTED IU/mL (NOT DETECTED)
== END 2022-08-10 07:53 | disposition home or self-care (01) ==
LOC: HO.LAB 07:52
PROVIDERS: PCP Nurse Practitioner Family; Visit Provider Internal Medicine Gastroenterology
DX: B19.20 Unspecified viral hepatitis C without hepatic coma (principal)
CPT/HCPCS: 36415; 80053; 85025; 87522

== ENCOUNTER → 2022-08-18 07:48 | Outpatient (BNVA) | payer MEDICARE, MEDICAID, SELFPAY | PROVIDERS: PCP Nurse Practitioner Family; Visit Provider Internal Medicine Gastroenterology | DX: K74.60 Unspecified cirrhosis of liver (principal); K59.00 Constipation, unspecified; R79.89 Other specified abnormal findings of blood chemistry; D69.6 Thrombocytopenia, unspecified; B19.20 Unspecified viral hepatitis C without hepatic coma | CPT/HCPCS: Q3014 ==

== ENCOUNTER 2022-09-11 08:53 | Outpatient (REF) | payer OTHER, MEDICAID, SELFPAY ==
[2022-09-12 14:43] LABS: HCV Log PCR <1.18 NOT DETECTED Log IU/mL (NOT DETECTED); HepC Viral Load <15 NOT DETECTED IU/mL (NOT DETECTED)
== END 2022-09-11 08:54 | disposition home or self-care (01) ==
LOC: HO.LAB 08:53
PROVIDERS: PCP Nurse Practitioner Family; Visit Provider Internal Medicine Gastroenterology
DX: K74.60 Unspecified cirrhosis of liver (principal); B19.20 Unspecified viral hepatitis C without hepatic coma
CPT/HCPCS: 36415; 80053; 85025; 85610; 87522

== ENCOUNTER 2022-09-14 07:36 | Outpatient (AMB) | payer MEDICARE, MEDICAID, SELFPAY ==
--- NOTE | 2022-09-14 07:48 | A.OFFVIS_ITS ---
Intake Vital Signs 09/14/22 07:50 Height 5 ft 8 in Weight 220 lb 0.341 oz BMI 33.5 BP 109/69 Blood Pressure Location Lt brachial Position Sitting Pulse 74 Intake Visit Reasons: lab results Intake Note: Patient follow up for Cirrhosis and lab results. Patient denies any GI issues. 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: No Accompanied by: Self / Same As Patient Allergies SEASONAL ALLERGIES Allergy (Unknown, Uncoded 05/24/22 08:44) UNKNOWN Medication List - Last Reconciled 09/14/22 by Mony Meier MD cholecalciferol (vitamin D3) 50 mcg PO DAILY 90 days escitalopram oxalate 10 mg PO DAILY furosemide (Lasix) 40 mg (2 x 20 mg) PO QAM 90 days hydroxyzine HCl 25 mg PO BID PRN lamotrigine 100 mg PO DAILY methadone 10 mg PO DAILY multivitamin (One Daily Multivitamin tablet) 1 tab PO DAILY 90 days polyethylene glycol 3350 (Miralax) 17 grams PO DAILY PRN temazepam 7.5 mg PO BEDTIME PRN HPI lab results HPI Details GI clinic visit for this 46 YM seen for FU of 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 Pt started Epclusa in 06/14/22 LABS IN [place] [employer] : REVIEWED IMAGING STUDIES:? 01/06/22 ABD US SHOWED: Slightly echogenic liver but otherwise unremarkable. Gallbladder, head and body the pancreas and right kidney are unremarkable. Tail of the pancreas is not seen. TODAY'S VISIT: Complains of chronic constipation since childhood. Denies rectal bleeding. Finished Hepatitis C treatment 6 days ago. Has some Depression and talks to his therapist every other Sunday. PAST VISITS: Completed 2 months of treatment with Epclusa. Doing well. Has some depression and difficulty sleeping. Requesting a prescription for Miralax for constipation. Lost another 15 to 20 lbs and weighs around 220 lbs. Ankle edema has resolved and has some swelling in the legs Decreased methadone to 70 mg Wt has been stable and ankle edema has resolved. Denies using any drugs for the past 4 to 5 months Scheduled for an EGD and Colon in October, at [facility]. Nauseas and sensation of cold on and off with HCV medication. denies any other GI issues. Doing Ok - takes Epclusa at 6 am Has nausea at 10 or 11 Intermittent TEJEDA and feels cold. Had a few episodes of feeling hard time breathing resolves after he takes a few deep breaths. Has a FU appt at [facility] Hepatology in Nov, 2022. Ate a bunch of grapes and had nausea and vomiting. Wt loss of 14 lbs since last visit. Eating vegetables, fruits and chicken and no salt. Has a lot of anxiety and stress - partly due to his living situation. Living with his Mom's boyfriend. 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 No drugs x 2 months Methadone decreased to 103 mg. Stopped taking lactulose and is taking Miralax for constipation. Wt loss of 24 lbs - decreased appetite with poor PO intake Has been taking furosemide and not the spironolactone (smelt different and noted gynecomastia) Stressed out due to mouse infestation at home. Last drug use was 2-3 weeks ago. Liver hurts when he sits It takes a long time to urinate Also notes constipation. Notes jerking movements of both arms while asleep. States he stopped doing drugs - does it once and then no drugs for a long time Wakes up and feels dizzy and hungry and eats and drinks and goes back to sleep PAST VISIT: Diagnosed with Hep C 6 years ago. Hx of IV heroin use from age 32 yrs. Stopped using drugs after being diagnosed with Hep C? for 3 yrs. Relapsed when his Mom and started using drugs 1-2 times a month and continues to use it He is also on Methadone x 6 yrs. Became depressed after his mother and stopped exercising and gained a 100 lbs Complains of fatigue, lower extremity edema and some abdominal distension since Mar, 2021 or a little less. Patient denies symptoms of heartburn, dysphagia, nausea, vomiting. Stool has been dark and jennifer colored since he started using methadone. Appetite has gone down - only drinks almond milk. Complains of constipation and has a BM every 3-4 days Denies black stools or rectal bleeding. Patient denies major cardiac or pulmonary problems, loud snoring. May have undiagnosed sleep apnea Denies problems with anesthesia in the past - has had anesthesia twice in the past and threw up both times when he woke up. Denies being on chronic anticoagulation. Never smoked cigg and no ETOH since age 32 yrs (Binge drinking of hard liquor in the past) Patient denies known family history of colon polyps, colon cancer or other GI malignancies. A 2nd aunt had colon cancer and in her early 60's. 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 PAST EGD/COLONOSCOPY:? Denies having an EGD or colon in the past PAST GI HISTORY BY REVIEW OF MEDICAL RECORDS: 03/03/22 PT WAS SEEN BY DR ACE: He presents for evaluation and treatment Hepatitis C. He had viral load 2,760,000 and had type 2 with F4 fibrosis score on 02/22/2022. He has platelets 104 and albumin 3.2 with some confusion at last visit (couldnt find office). He also complaints of swelling legs and abdomen but abdomen u/s in January didnt show ascites. He takes Methadone but hasnt had swelling until recently in legs. He has not been treated before for Hepatitis C. Assessment & Plan (1) Hepatitis C: ?Comment: He has Hepatitis C F4 fibrosis and I am not sure if cirrhosis is compensated or not since he has some intermittent confusion he reports and has reported recent abdominal swelling ?developing ascites and has thrombocytopenia therefore I do not feel comfortable treating Hepatitis C unless liver disease is more clearly defined ?decompensating cirrhosis therefore would refer to GI. ?Code(s): B19.20 - Unspecified viral hepatitis C without hepatic coma ?Plan: No treatment at this time. Set up with GI for evaluation ?end stage liver disease /evaluate upper endoscopy [facility] Medical History Encounter to establish care Screening for hyperlipidemia Screening for hypothyroidism Surgical History History of hand surgery Family History Father No problems noted. Mother Heroin dependence Endocarditis Social History Housing: Apartment Alcohol intake: never Patient Tobacco Use Status: Never used Tobacco e-Cigarette/Vaping Use: Never Used Substance Use Type: Heroin service: No Current occupational status: unemployed Cognitive needs: No Hearing needs: No Vision needs: No Review of Systems Const All systems reviewed & are unremarkable except as noted in HPI and below Physical Exam Vital Signs: Last Vital Signs Pulse 74 07/13/23 07:50 BP 109/69 09/14/22 07:50 BMI result Body Mass Index 33.5 Const General: healthy appearing, no acute distress and anxious Nutritional Appearance: obese Orientation/consciousness: patient oriented x3 Limitations: no limitations HEENT Head: Yes normal to inspection Ears: hearing grossly normal bilaterally Eyes Sclerae: sclerae normal Pupils: Equal, round and reactive pupils present Neck Neck: Yes normal visual inspection Chest Chest palpation & inspection: normal inspection of the chest Resp Effort & Inspection: normal respiratory effort Auscultation: clear to auscultation bilaterally Cardio Palpation: normal PMI Rate: regular rate Rhythm: regular rhythm Heart sounds: S1 normal heart sound present, S2 normal heart sound present and no murmurs GI Palpation (GI): Soft to palpation, nontender and No hepatosplenomegaly present Auscultation: normal bowel sounds Rectal Exam - Male: Yes deferred Skin General skin exam: no rashes or lesions noted Neuro General: patient oriented x3, gait normal and moves all extremities Cranial nerves: Yes Equal, round and reactive pupils present Psych Appearance: grossly normal Mental Status: mental status grossly normal Assessment & Plan Assessment & Plan (1) Cirrhosis of liver without ascites: Code(s): K74.60 - Unspecified cirrhosis of liver (2) Low vitamin D level: Code(s): R79.89 - Other specified abnormal findings of blood chemistry (3) Anemia: Code(s): D64.9 - Anemia, unspecified (4) Constipation: Code(s): K59.00 - Constipation, unspecified (5) Hepatitis C: Comment: Hepatitis C F4 fibrosis (Genotype 2) and lower extremity edema without ascites. Pt started on Epclusa x 12 weeks on 06/14/22. Patient is also followed by [facility] hepatology Clinic. Code(s): B19.20 - Unspecified viral hepatitis C without hepatic coma Plan [address] Ace for evaluation of ESLD related to chronic hep C (genotye 2) infection complicated by lower extremity edema and suspected encephalopathy. Hepatitis C likely acquired by past IV drug abuse - patient continues to use drugs 1 to 2 times a month despite being on methadone for the past 6 years MELD Na score is 14 Pt has some confusion and has difficulty finding the right location for his appts Pt has morbid obesity and he likely has MARSH associated with Hep C Iron saturaton was 90% and also need to rule out hemochromatosis and other metabolic causes of chronic liver disease. Hemochromatosis DNA results: One copy each of the C282Y and H63D pathogenic variants in HFE gene was detected. Approximately 3%-8% of individuals with a biochemical diagnosis of hereditary hemochromatosis (HH) have this genotype. Therefore, this result is consistent with a diagnosis of HH in an individual with clinical evidence of HH. However, this genotype does not predict a diagnosis of HH in an asymptomatic individual, as only 0.5% to 2% of individuals with this genotype will develop symptoms or clinical evidence of this disorder. Disease diagnosis can only be made by demonstration of elevated iron stores. Pt is also followed at [facility] Hepatology clinic. 06/14/22 Pt was started on Epclusa x 12 weeks for Hepatitis C It was explained to the pt that he is at risk for decompensation during treatment and will need to be monitored closely with labs and clinic appts Pt handout on cirrhosis from [facility] was given to the patient at a previous visit. 08/18/22 denies ETOH or drug use for the past 4-5 months. 09/14/22 Finished Hep C treatment on 09/08/22 Normal LFTs and negative Hep C viral load - I will recheck in 6 months to rule out Hep C relapse. Repeat MELD Na score post treatment is 8 Patient was advised to increase MiraLax to twice daily for constipation. FU appt in 6 months Medications: Changed From polyethylene glycol 3350 (Miralax) 17 grams PO DAILY PRN 238 grams 1RF constipation K59.00 - Constipation, unspecified To polyethylene glycol 3350 (Miralax) 17 grams PO BID 60 days 2,040 grams 2RF constipation K59.00 - Constipation, unspecified Patient Instructions: Decrease Lasix to 1 tab daily. Coding Level of Care Code Est Pt Level 4 (58330) Diagnoses Cirrhosis of liver without ascites K74.60 Low vitamin D level R79.89 Anemia D64.9 Constipation K59.00 Hepatitis C B19.20 Time Spent (min) 19
[2022-09-14 07:50] VITALS: BP 109/69; PULSE 74; BMI 33.5
== END 2022-09-14 08:18 | disposition home or self-care (01) ==
PROVIDERS: PCP Nurse Practitioner Family; Visit Provider Internal Medicine Gastroenterology
DX: K74.60 Unspecified cirrhosis of liver (principal); R79.89 Other specified abnormal findings of blood chemistry; D64.9 Anemia, unspecified; K59.00 Constipation, unspecified; B19.20 Unspecified viral hepatitis C without hepatic coma
CPT/HCPCS: 99214

== ENCOUNTER → 2022-09-14 07:36 | Outpatient (BNVA) | payer MEDICARE, SELFPAY | PROVIDERS: PCP Nurse Practitioner Family; Visit Provider Internal Medicine Gastroenterology | DX: K74.60 Unspecified cirrhosis of liver (principal); K59.00 Constipation, unspecified; R79.89 Other specified abnormal findings of blood chemistry; D64.9 Anemia, unspecified; B19.20 Unspecified viral hepatitis C without hepatic coma | CPT/HCPCS: 99212 ==

== ENCOUNTER 2022-10-09 07:53 | Outpatient (REF) | payer MEDICARE, MEDICAID, SELFPAY ==
[2022-10-09 08:19] LABS: MANUAL DIFF FLAG NO
[2022-10-09 08:55] LABS: Basophils Percent Auto 0.7 % (0-2); Eosinophils Absolute Auto 0.2 X10*3/uL (0.0-0.4); Eosinophils Percent Auto 2.6 % (0-4); Hematocrit 38.9 % (42.0-52.0); Hemoglobin 13.3 g/dl (14.0-18.0); Imm Gran Abs Auto 0.01 X10*3/uL (0.00-0.03); Imm Gran Pct Auto 0.2 % (0.0-0.4); Lymphocytes Absolute Auto 2.4 X10*3/uL (1.2-4.9); Lymphocytes Percent Auto 39.4 % (20-40); Mean Corpuscular HGB Conc 34.2 g/dl (31.0-36.0); Mean Corpuscular Hemoglobin 31.9 pg (27.0-33.0); Mean Corpuscular Volume 93.3 fL (80.0-98.0); Mean Platelet Volume 11.8 fL (9.4-12.4); Monocytes Absolute Auto 0.4 X10*3/uL (0.1-1.2); Monocytes Percent Auto 7.3 % (2-11); Neutrophils Percent Auto 49.8 % (45-73); Platelet Count 123 X10*3/uL (160-400); Red Blood Count 4.17 X10*6/uL (4.60-5.80); Red Cell Distribution Width 13.4 % (11.0-16.0); White Blood Count 6.1 X10*3/uL (4.8-10.8)
[2022-10-09 09:31] LABS: Alanine Aminotransferase 27 U/L (0-40); Albumin Level 3.8 g/dL (3.5-5.0); Alkaline Phosphatase 96 U/L (39-117); Anion Gap 14 (12-20); Aspartate Amino Transferase 33 U/L (5-37); Bilirubin Total 0.7 mg/dL (0.0-1.0); Blood Urea Nitrogen 8 mg/dL (9-16); Carbon Dioxide 23 mmol/L (22-29); Chloride 105 mmol/L (96-108); Estimated Glomerular Filt Rate > 60; Glucose Random 120 mg/dL (60-115); Potassium 4.1 mmol/L (3.3-5.1); Sodium 138 mmol/L (135-145); Total Protein 6.8 g/dL (6.5-8.0)
[2022-10-12 15:47] LABS: HCV Log PCR <1.18 NOT DETECTED Log IU/mL (NOT DETECTED); HepC Viral Load <15 NOT DETECTED IU/mL (NOT DETECTED)
== END 2022-10-09 07:54 | disposition home or self-care (01) ==
LOC: HO.LAB 07:53
PROVIDERS: PCP Nurse Practitioner Family; Visit Provider Internal Medicine Gastroenterology
DX: B19.20 Unspecified viral hepatitis C without hepatic coma (principal); K74.60 Unspecified cirrhosis of liver
CPT/HCPCS: 36415; 80053; 85025; 87522

== ENCOUNTER 2022-12-01 08:27 | Outpatient (AMB) | payer MEDICARE, MEDICAID, SELFPAY ==
[2022-12-01 08:32] VITALS: BP 110/72; PULSE 63; O2SAT 98; BMI 34.8
--- NOTE | 2022-12-01 08:32 | MHC.PC.OV ---
Vital Signs 12/01/22 08:32 Height 5 ft 8 in Weight 229 lb BMI 34.8 BP 110/72 Blood Pressure Location Lt brachial Position Sitting Pulse 63 Pulse Source Pulse Oximeter Pulse Oximetry (%) 98 Oxygen Delivery Method Room Air Intake Visit Reasons: PE Intake Note: Patient is here today for a physical. Probe Operator Required: No Allergies SEASONAL ALLERGIES Allergy (Unknown, Uncoded 12/01/22 08:41) UNKNOWN Medication List - Last Reconciled 12/01/22 by MORELIA Aguero cholecalciferol (vitamin D3) 50 mcg PO DAILY 90 days escitalopram oxalate 10 mg PO DAILY furosemide (Lasix) 40 mg (2 x 20 mg) PO QAM 90 days hydroxyzine HCl 25 mg PO BID PRN lamotrigine 100 mg PO DAILY methadone 10 mg PO DAILY multivitamin (One Daily Multivitamin tablet) 1 tab PO DAILY 90 days polyethylene glycol 3350 (Miralax) 17 grams PO BID 60 days Tobacco use date assessed: 12/01/22 Dental Screening Dental Screen Date: 12/01/22 Did you have a dental visit in the last 12 months?: No Did you have a dental problem in the last 6 months where you did not have access to dental care?: No HPI PE HPI Details Patient is a 47-year-old male who presents today for physical exam.? Medical history significant for low vitamin-D level, thrombocytopenia, anemia, obesity, anxiety, depression, constipation, bipolar disorder, history of opioid abuse-on methadone, cirrhosis of liver without ascites - ESLD related to chronic hepatitis-C complicated by BLE - finished hepatitis C treatment - followed by Dr. Meier. Patient also reports that he is followed by Hepatology Clinic at [facility] Dr. Barton - patient reports that he was supposed to have colonoscopy 10/2022 at [facility] although he did not have a ride and he will reschedule this appointment. Patient denies shortness of breath or chest pain. Patient denies problems with his eyes, he does not see eye doctor. He will call for dental exam. Patient has declined tetanus vaccine. [facility] Medical History Screening for hypothyroidism Screening for hyperlipidemia Encounter to establish care Surgical History History of hand surgery Family History Father No problems noted. Mother Heroin dependence Endocarditis Social History Housing: Apartment Alcohol intake: never Patient Tobacco Use Status: Never used Tobacco e-Cigarette/Vaping Use: Never Used Substance Use Type: Heroin service: No Current occupational status: unemployed Cognitive needs: No Hearing needs: No Vision needs: No Questionnaire PHQ-9 Over the last 2 weeks, how often have you been bothered by any of the following problems? 1. Little interest or pleasure in doing things: several days 2. Feeling down, depressed, or hopeless: several days 3. Trouble falling or staying asleep, or sleeping too much: several days 4. Feeling tired or having little energy: several days 5. Poor appetite or overeating: several days 6. Feeling bad about yourself - or that you are a failure or have let yourself or your family down: not at all 7. Trouble concentrating on things, such as reading the newspaper or watching television: not at all 8. Moving or speaking so slowly that other people could have noticed. Or the opposite - being so fidgety or restless that you have been moving around a lot more than usual: not at all 9. Thoughts that you would be better off or of hurting yourself in some way: not at all Total score: 5 Depression Screening Interpretation: Negative 09446 - PHQ-9 Billing: Yes Source: Developed by Drs. Lior Juan, Lazara Cedeno, Art Pruitt and colleagues, with an educational alex from [employer]. Thrive Questionnaire Date Thrive assessed: 05/24/22 AUDIT C Alcohol Use Questionnaire (AUDIT-C) 1. How often do you have a drink containing alcohol?: Never 3. How often do you have six or more drinks on one occasion?: Never Total Score: 0 Score Reviewed/Action Taken: No SHAHAB-7 AMB Questionnaire SHAHAB-7 Date SHAHAB - 7 assessed: 12/01/22 Feeling nervous, anxious, or on edge: 1 = Several days Not being able to stop or control worryin = Several days Worrying too much about different things: 0 = Not at all Trouble relaxin = Not at all Being so restless that it is hard to sit still: 0 = Not at all Becoming easily annoyed or irritable: 0 = Not at all Feeling afraid as if something awful might happen: 0 = Not at all Total SHAHAB-7 score (0-4 normal; 5-9 mild; 10-14 moderate; 15-21 severe): 2 Source: Developed by Drs. Lior Juan, Lazara Cedeno, Art Pruitt and colleagues, with an educational alex from [employer]. SHAHAB-7 Assessment Billing SHAHAB-7 Assessment Tool: SHAHAB-7 Assessment 52667 Review of Systems Const Denies body aches, Denies chills, Denies fever(s) and Denies headache(s) Eyes Denies change in vision ENT Denies dizziness, Denies otalgia, Denies headache(s), Denies nasal discharge, Denies sinus pain and Denies sore throat Card Denies chest pain, Denies leg edema, Denies lightheadedness and Denies dyspnea Resp Denies chest congestion, Denies cough and Denies dyspnea GI Reports constipation (Intermittent), Denies diarrhea, Denies nausea and Denies vomiting Denies difficulty urinating and Denies dysuria Musc Denies myalgias Skin/Breast Denies rash Neuro Denies dizziness and Denies headache(s) Physical exam (Primary Care) Vital Signs: Last Vital Signs Pulse 63 12/01/22 08:32 BP 110/72 12/01/22 08:32 Pulse Ox 98 12/01/22 08:32 Oxygen Delivery Method Room Air 12/01/22 08:32 BMI result Body Mass Index 34.8 Tobacco/Smoking Status: Tobacco use Status Tobacco use date assessed 12/01/22 12/01/22 08:37 Patient Tobacco Use Status Never used Tobacco 12/01/22 08:37 e-Cigarette/Vaping Use Never Used 12/01/22 08:37 PHQ-9: PHQ-9 Score PHQ-9: Total score 5 12/01/22 08:44 Depression Screening Interpretation: Negative Thrive Assessment: Date of Thrive Assessment Date Thrive assessed 05/24/22 12/01/22 08:37 Const General: cooperative and no acute distress Orientation/consciousness: patient oriented x3 HENMT Head: Yes normocephalic and Yes atraumatic Ears: TM's normal bilaterally Face and sinus: Yes sinuses nontender Mouth: oropharynx normal and moist mucous membranes Throat: Yes posterior oropharynx normal Eyes General: appearance normal, both eyes and all related structures Pupils: Equal, round and reactive pupils present EOM: EOMs intact bilaterally Neck Neck: Yes normal visual inspection, Yes full ROM and Yes no lymphadenopathy Thyroid: Thyroid normal Resp Effort & Inspection: normal respiratory effort and able to speak in complete sentences Auscultation: clear to auscultation bilaterally, no crackles, no rales, no rhonchi and no wheezes Cardio Rate: regular rate Rhythm: regular rhythm Heart sounds: S1 normal heart sound present, S2 normal heart sound present and no murmurs GI Palpation (GI): Soft to palpation, not firm, nontender, no guarding, not rigid and no hepatosplenomegaly Auscultation: normal bowel sounds General: No CVA tenderness Back/Spine/Pelvis Back: No CVA tenderness Skin General skin exam: no rashes or lesions noted Neuro General: patient oriented x3 Cranial nerves: Yes Equal, round and reactive pupils present Gait exam (Neuro): Normal gait present Extrem General: Yes full ROM and No edema Assessment and Plan Assessment & Plan (1) Depression: Code(s): F32.A - Depression, unspecified Qualifiers: Depression Type: other depression Qualified Code(s): F32.89 - Other specified depressive episodes Plan: Continue to follow-up with therapist and prescriber at [facility] (2) Anxiety: Code(s): F41.9 - Anxiety disorder, unspecified Plan: Continue to follow-up with therapist and prescriber at [facility] (3) Constipation: Code(s): K59.00 - Constipation, unspecified Plan: Increase fluid consumption and dietary fiber Continue MiraLax b.i.d. as needed (4) Hepatitis C: Comment: Hepatitis C F4 fibrosis (Genotype 2) and lower extremity edema without ascites. Pt started on Epclusa x 12 weeks on 06/14/22. Patient is also followed by [facility] hepatology Clinic. Code(s): B19.20 - Unspecified viral hepatitis C without hepatic coma Plan: ESLD related to chronic hepatitis-C complicated by BLE - finished hepatitis C treatment and followed by Dr. Meier (5) History of opioid abuse: Code(s): F11.11 - Opioid abuse, in remission Plan: Patient is on methadone Continue to follow-up with Methadone clinic in [facility] (6) Bipolar disorder: Code(s): F31.9 - Bipolar disorder, unspecified Plan: Continue to follow-up with therapist and prescriber at [facility] (7) Low vitamin D level: Code(s): R79.89 - Other specified abnormal findings of blood chemistry Plan: Continue vitamin-D as prescribed (8) Anemia: Code(s): D64.9 - Anemia, unspecified Plan: Improved, continue to monitor (9) Cirrhosis of liver without ascites: Code(s): K74.60 - Unspecified cirrhosis of liver Plan: ESLD related to chronic hepatitis-C complicated by BLE - finished hepatitis C treatment and followed by Dr. Meier (10) Elevated glucose: Code(s): R73.09 - Other abnormal glucose Plan: A1c ordered (11) Obesity (BMI 30-39.9): Code(s): E66.9 - Obesity, unspecified Plan: Healthy food choices and exercise as tolerated (12) Adult general medical exam: Code(s): Z00.00 - Encounter for general adult medical examination without abnormal findings (13) Screening for colon cancer: Code(s): Z12.11 - Encounter for screening for malignant neoplasm of colon Plan: Patient reports that he was supposed to have colonoscopy 10/2022 at [facility] although he did not have a ride and he will reschedule this appointment. Orders: Orders Vitamin D 25-OH Total 12/01/22 R79.89 - Other specified abnormal findings of blood chemistry Hemoglobin A1c 12/01/22 R73.09 - Other abnormal glucose Lipid Panel 12/01/22 Z00.00 - Encounter for general adult medical examination without abnormal findings TSH reflex Free T4 12/01/22 Z00.00 - Encounter for general adult medical examination without abnormal findings Vitamin B12 and Folate 12/01/22 Z00.00 - Encounter for general adult medical examination without abnormal findings Coding Level of Care Code Est Pt Prev Care 40-64y(06573) Diagnoses Other depression F32.89 Depression Type: other depression Anxiety F41.9 Constipation K59.00 Hepatitis C B19.20 History of opioid abuse F11.11 Bipolar disorder F31.9 Low vitamin D level R79.89 Anemia D64.9 Cirrhosis of liver without ascites K74.60 Elevated glucose R73.09 Obesity (BMI 30-39.9) E66.9 Adult general medical exam Z00.00 Screening for colon cancer Z12.11 Additional Codes SHAHAB-7 Assessment Billing - SHAHAB-7 Assessment Tool: SHAHAB-7 Assessment [id number] ([id number])
== END 2022-12-01 08:58 | disposition home or self-care (01) ==
PROVIDERS: Visit Provider Nurse Practitioner Family
DX: Z00.00 Encounter for general adult medical examination without abnormal findings (principal); F11.11 Opioid abuse, in remission; F31.9 Bipolar disorder, unspecified; K74.60 Unspecified cirrhosis of liver; F32.89 Other specified depressive episodes; F41.9 Anxiety disorder, unspecified; K59.00 Constipation, unspecified; B19.20 Unspecified viral hepatitis C without hepatic coma; R79.89 Other specified abnormal findings of blood chemistry; D64.9 Anemia, unspecified; R73.09 Other abnormal glucose
CPT/HCPCS: 99396

== ENCOUNTER 2023-01-29 11:01 | Outpatient (REF) | payer OTHER, SELFPAY ==
[2023-01-29 11:16] LABS: MANUAL DIFF FLAG NO
[2023-01-29 11:47] LABS: Basophils Absolute Auto 0.1 X10*3/uL (0.0-0.2); Basophils Percent Auto 0.7 % (0-2); Eosinophils Absolute Auto 0.1 X10*3/uL (0.0-0.4); Eosinophils Percent Auto 1.1 % (0-4); Hematocrit 40.5 % (42.0-52.0); Hemoglobin 13.8 g/dl (14.0-18.0); Imm Gran Abs Auto 0.01 X10*3/uL (0.00-0.03); Imm Gran Pct Auto 0.1 % (0.0-0.4); Lymphocytes Absolute Auto 2.3 X10*3/uL (1.2-4.9); Mean Corpuscular HGB Conc 34.1 g/dl (31.0-36.0); Mean Corpuscular Hemoglobin 32.3 pg (27.0-33.0); Mean Corpuscular Volume 94.8 fL (80.0-98.0); Mean Platelet Volume 11.5 fL (9.4-12.4); Monocytes Absolute Auto 0.4 X10*3/uL (0.1-1.2); Monocytes Percent Auto 5.2 % (2-11); Neutrophils Absolute Auto 4.3 x10*3/uL (2.0-8.3); Neutrophils Percent Auto 60.9 % (45-73); Platelet Count 152 X10*3/uL (160-400); Red Blood Count 4.27 X10*6/uL (4.60-5.80); Red Cell Distribution Width 13.3 % (11.0-16.0); White Blood Count 7.1 X10*3/uL (4.8-10.8)
[2023-01-29 12:05] LABS: Estimated Average Glucose 88 mg/dL; Hemoglobin A1c % 4.7 % (<6.0)
[2023-01-29 12:14] LABS: Anion Gap 11 (12-20); Blood Urea Nitrogen 8 mg/dL (9-16); Carbon Dioxide 26 mmol/L (22-29); Chloride 105 mmol/L (96-108); Cholesterol 220 mg/dL (<200); Estimated Glomerular Filt Rate > 60; Glucose Random 79 mg/dL (60-115); HDL Cholesterol 47 mg/dL (>40); LDL Cholesterol Calculated 149 mg/dL (<100); Potassium 4.3 mmol/L (3.3-5.1); Sodium 138 mmol/L (135-145); Triglycerides 123 mg/dL (<150)
[2023-01-29 12:33] LABS: TSH reflex Free T4 1.16 uIU/mL (0.32-4.0); Vitamin D 25-OH Total 29.3 ng/mL (>30)
[2023-01-29 12:45] LABS: Folate 15.8 ng/mL (> or = 4.0); Vitamin B12 732 pg/mL (200-900)
[2023-01-30 13:43] LABS: HCV Log PCR <1.18 NOT DETECTED Log IU/mL (NOT DETECTED); HepC Viral Load <15 NOT DETECTED IU/mL (NOT DETECTED)
== END 2023-01-29 11:02 | disposition home or self-care (01) ==
LOC: HO.LAB 11:01
PROVIDERS: PCP Nurse Practitioner Family; Visit Provider Internal Medicine Gastroenterology
DX: Z00.00 Encounter for general adult medical examination without abnormal findings (principal); B19.20 Unspecified viral hepatitis C without hepatic coma; R73.09 Other abnormal glucose; R79.89 Other specified abnormal findings of blood chemistry
CPT/HCPCS: 36415; 80048; 80061; 82306; 82607; 82746; 83036; 84443; 85025; 87522

== ENCOUNTER 2023-05-29 09:35 | Outpatient (REF) | payer OTHER, SELFPAY ==
[2023-05-29 09:59] LABS: Hematocrit 42.8 % (42.0-52.0); Hemoglobin 14.8 g/dl (14.0-18.0); Mean Corpuscular HGB Conc 34.6 g/dl (31.0-36.0); Mean Corpuscular Hemoglobin 32.2 pg (27.0-33.0); Mean Corpuscular Volume 93.2 fL (80.0-98.0); Platelet Count 149 X10*3/uL (160-400); Red Blood Count 4.59 X10*6/uL (4.60-5.80); White Blood Count 7.4 X10*3/uL (4.8-10.8)
[2023-05-29 10:04] LABS: INTERNATIONAL NORM RATIO 1.1 (0.9-1.1); Prothrombin Time 13.5 SEC (11.1-13.3)
[2023-05-29 10:38] LABS: Alanine Aminotransferase 20 U/L (0-40); Albumin Level 4.3 g/dL (3.5-5.0); Alkaline Phosphatase 69 U/L (39-117); Anion Gap 10 (12-20); Aspartate Amino Transferase 28 U/L (5-37); Bilirubin Total 0.7 mg/dL (0.0-1.0); Blood Urea Nitrogen 9 mg/dL (9-16); Calcium 9.5 mg/dL (8.4-10.2); Carbon Dioxide 30 mmol/L (22-29); Chloride 104 mmol/L (96-108); Estimated Glomerular Filt Rate > 60; Glucose Random 117 mg/dL (60-115); Sodium 140 mmol/L (135-145); Total Protein 7.2 g/dL (6.5-8.0)
== END 2023-05-29 09:36 | disposition home or self-care (01) ==
LOC: HO.LAB 09:35
PROVIDERS: Visit Provider Internal Medicine Gastroenterology
DX: K74.60 Unspecified cirrhosis of liver (principal)
CPT/HCPCS: 36415; 80053; 82306; 85027; 85610

== ENCOUNTER 2023-05-31 09:57 | Outpatient (AMB) | payer OTHER, SELFPAY ==
--- NOTE | 2023-05-31 10:05 | MHC.OFFVIS ---
Intake Vital Signs 05/31/23 10:07 Height 5 ft 8 in Weight 205 lb BMI 31.2 BP 117/67 Blood Pressure Location Lt brachial Position Sitting Pulse 77 Intake Visit Reasons: 6 Month Follow up Intake Note: Patient follow up for Anemia and lab results Patient denies any GI issues. He is just complaining on pee a lot at night time. Nurse Navigator Required: No Accompanied by: Self / Same As Patient Allergies SEASONAL ALLERGIES Allergy (Unknown, Uncoded 12/01/22 08:41) UNKNOWN Medication List - Last Reconciled 05/31/23 by Mony Meier MD cholecalciferol (vitamin D3) 50 mcg PO DAILY 90 days escitalopram oxalate 10 mg PO DAILY hydroxyzine HCl 25 mg PO BID PRN lamotrigine 100 mg PO DAILY methadone 10 mg PO DAILY multivitamin (One Daily Multivitamin tablet) 1 tab PO DAILY 90 days polyethylene glycol 3350 (Miralax) 17 grams PO BID 60 days HPI 6 Month Follow up HPI Details GI clinic visit for this 47 YM seen for FU of 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 Pt treated with Epclusa starting on 06/14/22 with a sustained viral response [facility] RE[facility] IMAGING STUDIES:? 01/06/22 ABD US SHOWED: Slightly echogenic liver but otherwise unremarkable. Gallbladder, head and body the pancreas and right kidney are unremarkable. Tail of the pancreas is not seen. TODAY'S VISIT: Patient follow up for Anemia and lab results Patient denies any GI issues. He is just complaining on pee a lot at night time. Has been exercising more and has lost weight (would like to go back to baseline wt of 160 lbs) Takes Miralax as needed for intermittent constipation. Complains of increased frequency and nocturia - advised to discuss with his PCP. Smokes Marijuana occasionally at night for anxiety. PAST VISITS: Complains of chronic constipation since childhood. Denies rectal bleeding. Finished Hepatitis C treatment 6 days ago. Has some Depression and talks to his therapist every other Sunday. Completed 2 months of treatment with Epclusa. Doing well. Has some depression and difficulty sleeping. Requesting a prescription for Miralax for constipation. Lost another 15 to 20 lbs and weighs around 220 lbs. Ankle edema has resolved and has some swelling in the legs Decreased methadone to 70 mg Wt has been stable and ankle edema has resolved. Denies using any drugs for the past 4 to 5 months Scheduled for an EGD and Colon in October, at [facility]. Nauseas and sensation of cold on and off with HCV medication. denies any other GI issues. Doing Ok - takes Epclusa at 6 am Has nausea at 10 or 11 Intermittent TEJEDA and feels cold. Had a few episodes of feeling hard time breathing resolves after he takes a few deep breaths. Has a FU appt at [facility] Hepatology in Nov, 2022. Ate a bunch of grapes and had nausea and vomiting. Wt loss of 14 lbs since last visit. Eating vegetables, fruits and chicken and no salt. Has a lot of anxiety and stress - partly due to his living situation. Living with his Mom's boyfriend. Pt was seen by Lead Handler at [facility]. No drugs x 2 months Methadone decreased to 103 mg. Stopped taking lactulose and is taking Miralax for constipation. Wt loss of 24 lbs - decreased appetite with poor PO intake Has been taking furosemide and not the spironolactone (smelt different and noted gynecomastia) Stressed out due to mouse infestation at home. Last drug use was 2-3 weeks ago. Liver hurts when he sits It takes a long time to urinate Also notes constipation. Notes jerking movements of both arms while asleep. States he stopped doing drugs - does it once and then no drugs for a long time Wakes up and feels dizzy and hungry and eats and drinks and goes back to sleep PAST VISIT: Diagnosed with Hep C 6 years ago. Hx of IV heroin use from age 32 yrs. Stopped using drugs after being diagnosed with Hep C? for 3 yrs. Relapsed when his Mom and started using drugs 1-2 times a month and continues to use it He is also on Methadone x 6 yrs. Became depressed after his mother and stopped exercising and gained a 100 lbs Complains of fatigue, lower extremity edema and some abdominal distension since Mar, 2021 or a little less. Patient denies symptoms of heartburn, dysphagia, nausea, vomiting. Stool has been dark and jennifer colored since he started using methadone. Appetite has gone down - only drinks almond milk. Complains of constipation and has a BM every 3-4 days Denies black stools or rectal bleeding. Patient denies major cardiac or pulmonary problems, loud snoring. May have undiagnosed sleep apnea Denies problems with anesthesia in the past - has had anesthesia twice in the past and threw up both times when he woke up. Denies being on chronic anticoagulation. Never smoked cigg and no ETOH since age 32 yrs (Binge drinking of hard liquor in the past) Patient denies known family history of colon polyps, colon cancer or other GI malignancies. A 2nd aunt had colon cancer and in her early 60's. 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 PAST EGD/COLONOSCOPY:? Denies having an EGD or colon in the past PAST GI HISTORY BY REVIEW OF MEDICAL RECORDS: 03/03/22 PT WAS SEEN BY DR ACE: He presents for evaluation and treatment Hepatitis C. He had viral load 2,760,000 and had type 2 with F4 fibrosis score on 02/22/2022. He has platelets 104 and albumin 3.2 with some confusion at last visit (couldnt find office). He also complaints of swelling legs and abdomen but abdomen u/s in January didnt show ascites. He takes Methadone but hasnt had swelling until recently in legs. He has not been treated before for Hepatitis C. Assessment & Plan (1) Hepatitis C: ?Comment: He has Hepatitis C F4 fibrosis and I am not sure if cirrhosis is compensated or not since he has some intermittent confusion he reports and has reported recent abdominal swelling ?developing ascites and has thrombocytopenia therefore I do not feel comfortable treating Hepatitis C unless liver disease is more clearly defined ?decompensating cirrhosis therefore would refer to GI. ?Code(s): B19.20 - Unspecified viral hepatitis C without hepatic coma ?Plan: No treatment at this time. Set up with GI for evaluation ?end stage liver disease /evaluate upper endoscopy [facility] Medical History (Updated 05/31/23 @ 10:53 by Mony Meier MD) Hepatitis C Anemia Screening for hypothyroidism Screening for hyperlipidemia Encounter to establish care Surgical History History of hand surgery Family History Father No problems noted. Mother Heroin dependence Endocarditis Social History Housing: Apartment Alcohol intake: never Patient Tobacco Use Status: Never used Tobacco e-Cigarette/Vaping Use: Never Used Substance Use Type: Heroin service: No Current occupational status: unemployed Cognitive needs: No Hearing needs: No Vision needs: No Review of Systems Const All systems reviewed & are unremarkable except as noted in HPI and below Physical Exam Vital Signs: Last Vital Signs Pulse 77 05/31/23 10:07 BP 117/67 05/31/23 10:07 BMI result Body Mass Index 31.2 Const General: healthy appearing and no acute distress Nutritional Appearance: obese Orientation/consciousness: patient oriented x3 Limitations: no limitations HEENT Head: Yes normal to inspection Ears: hearing grossly normal bilaterally Eyes Sclerae: sclerae normal Pupils: Equal, round and reactive pupils present Neck Neck: Yes normal visual inspection Chest Chest palpation & inspection: normal inspection of the chest Resp Effort & Inspection: normal respiratory effort Auscultation: clear to auscultation bilaterally Cardio Palpation: normal PMI Rate: regular rate Rhythm: regular rhythm Heart sounds: S1 normal heart sound present, S2 normal heart sound present and no murmurs GI Palpation (GI): Soft to palpation, nontender and No hepatosplenomegaly present Auscultation: normal bowel sounds Rectal Exam - Male: Yes deferred Skin General skin exam: no rashes or lesions noted Neuro General: patient oriented x3, gait normal and moves all extremities Cranial nerves: Yes Equal, round and reactive pupils present Psych Appearance: grossly normal Mental Status: mental status grossly normal Assessment & Plan Assessment & Plan (1) Screening for colon cancer: Code(s): Z12.11 - Encounter for screening for malignant neoplasm of colon (2) Cirrhosis of liver without ascites: Code(s): K74.60 - Unspecified cirrhosis of liver (3) Low vitamin D level: Comment: On Vitamin D replacement Code(s): R79.89 - Other specified abnormal findings of blood chemistry (4) Thrombocytopenia: Code(s): D69.6 - Thrombocytopenia, unspecified (5) Anemia: Comment: resolved Code(s): D64.9 - Anemia, unspecified (6) Constipation: Code(s): K59.00 - Constipation, unspecified (7) Hepatitis C: Comment: Hepatitis C F4 fibrosis (Genotype 2) and lower extremity edema without ascites. Pt started on Epclusa x 12 weeks on 06/14/22 and finished in September, with sustained response. Patient is also followed by [facility] hepatology Clinic. Code(s): B19.20 - Unspecified viral hepatitis C without hepatic coma Plan [address] Ace for evaluation of ESLD related to chronic hep C (genotye 2) infection complicated by lower extremity edema and suspected encephalopathy. Hepatitis C likely acquired by past IV drug abuse - patient continues to use drugs 1 to 2 times a month despite being on methadone for the past 6 years MELD Na score is 14 Pt has some confusion and has difficulty finding the right location for his appts Pt has morbid obesity with MARSH and Hep C Iron saturaton was 90% and also need to rule out hemochromatosis and other metabolic causes of chronic liver disease. Hemochromatosis DNA results: One copy each of the C282Y and H63D pathogenic variants in HFE gene was detected. Approximately 3%-8% of individuals with a biochemical diagnosis of hereditary hemochromatosis (HH) have this genotype. Therefore, this result is consistent with a diagnosis of HH in an individual with clinical evidence of HH. However, this genotype does not predict a diagnosis of HH in an asymptomatic individual, as only 0.5% to 2% of individuals with this genotype will develop symptoms or clinical evidence of this disorder. Disease diagnosis can only be made by demonstration of elevated iron stores. Pt is also followed at [facility] Hepatology clinic. 06/14/22 Pt was started on Epclusa x 12 weeks for Hepatitis C It was explained to the pt that he is at risk for decompensation during treatment and will need to be monitored closely with labs and clinic appts Pt handout on cirrhosis from [facility] was given to the patient at a previous visit. 08/18/22 denies ETOH or drug use for the past 4-5 months. 09/14/22 Finished Hep C treatment on 09/08/22 Normal LFTs and negative Hep C viral load - I will recheck in 6 months to rule out Hep C relapse. Repeat MELD Na score post treatment was 8 and declined to 7 Patient was advised to increase MiraLax to twice daily for constipation. 05/31/23 Pt advised to schedule an Abd US, EGD (screen for Enrique's) and colonoscopy (screening) FU appt in 6 month Orders: Orders US abdomen limited Today K74.60 - Unspecified cirrhosis of liver Medications: New multivitamin 1 tab PO QAM 90 tabs 1RF 90 days K74.60 - Unspecified cirrhosis of liver Refilled cholecalciferol (vitamin D3) 50 mcg PO DAILY 90 caps 1RF 90 days R79.89 - Other specified abnormal findings of blood chemistry Coding Level of Care Code Est Pt Level 4 (57574) Diagnoses Screening for colon cancer Z12.11 Cirrhosis of liver without ascites K74.60 Low vitamin D level R79.89 Thrombocytopenia D69.6 Anemia D64.9 Constipation K59.00 Hepatitis C B19.20 Time Spent (min) 24
[2023-05-31 10:07] VITALS: BP 117/67; PULSE 77; BMI 31.2
== END 2023-05-31 11:03 | disposition home or self-care (01) ==
PROVIDERS: PCP Nurse Practitioner Family; Visit Provider Internal Medicine Gastroenterology
DX: K74.60 Unspecified cirrhosis of liver (principal); Z12.11 Encounter for screening for malignant neoplasm of colon; K59.00 Constipation, unspecified; D69.6 Thrombocytopenia, unspecified; B19.20 Unspecified viral hepatitis C without hepatic coma
CPT/HCPCS: 99214

== ENCOUNTER → 2023-05-31 09:57 | Outpatient (BNVA) | payer OTHER, SELFPAY | PROVIDERS: PCP Nurse Practitioner Family; Visit Provider Internal Medicine Gastroenterology | DX: Z12.11 Encounter for screening for malignant neoplasm of colon (principal); K74.60 Unspecified cirrhosis of liver; K59.00 Constipation, unspecified; R79.89 Other specified abnormal findings of blood chemistry; D69.6 Thrombocytopenia, unspecified; D64.9 Anemia, unspecified; B19.20 Unspecified viral hepatitis C without hepatic coma | CPT/HCPCS: 99212 ==

== ENCOUNTER 2023-06-08 09:58 | Outpatient (REF) | payer OTHER, SELFPAY ==
--- NOTE | ~2023-06-08 | US_ITS ---
EXAMINATION: US ABDOMEN LIMITED CLINICAL INFORMATION: Unspecified cirrhosis of liver. Screening for HCC. COMPARISON: CT abdomen 06/05/2022. Ultrasound abdomen limited 01/06/2022. TECHNIQUE: Real-time imaging of the right upper quadrant abdominal viscera. FINDINGS: PANCREAS: The tail of the pancreas is obscured by bowel gas. The visible head and body are unremarkable. LIVER: Cirrhotic appearing liver. No discrete liver mass. No biliary ductal dilatation. GALLBLADDER: Cholesterolosis of the gallbladder. No cholelithiasis or evidence of cholecystitis. COMMON BILE DUCT: Normal in caliber measuring 0.5 cm in diameter. RIGHT KIDNEY: Normal. No hydronephrosis. No renal calculi or focal parenchymal lesions. The kidney measures 10.9 cm in maximum dimension. FREE FLUID: None. US/US abdomen limited IMPRESSION: Cirrhotic liver. No visible liver mass.
== END 2023-06-08 09:59 | disposition home or self-care (01) ==
LOC: HO.US 09:58
PROVIDERS: Visit Provider Internal Medicine Gastroenterology
DX: K74.60 Unspecified cirrhosis of liver (principal)
CPT/HCPCS: 76705

== ENCOUNTER 2023-09-02 14:34 | Emergency (ER) | payer OTHER, SELFPAY ==
--- NOTE | 2023-09-02 15:12 | ED.DENTAL ---
HPI - Dental/Oral General Chief complaint: Dental/Oral Stated complaint: Toothache Time Seen by Provider: 09/02/23 15:12 Source: patient Mode of arrival: ambulatory Limitations: no limitations History of Present Illness ED Provider: Syeda Cash APRN HPI Narrative: 47 yo male with history liver disease here with right upper dental pain after biting on something on Sunday and feeling pain. Now feels area is swollen and painful. No diff breathing, diff swallowing, fevers, chills. Has not seen dentist. Does not smoke cigarettes, does smoke marijuana. Related Data Home Medications ?Medication ?Instructions ?Recorded ?Confirmed lamotrigine 100 mg tablet 100 mg PO DAILY 11/30/21 05/31/23 escitalopram oxalate 10 mg tablet 10 mg PO DAILY 02/23/22 05/31/23 hydroxyzine HCl 25 mg tablet 25 mg PO BID PRN 05/24/22 05/31/23 methadone 10 mg/mL oral concentrate 10 mg PO DAILY 12/01/22 05/31/23 Previous Rx's ?Medication ?Instructions ?Recorded multivitamin (One Daily 1 tab PO DAILY 90 days #90 tabs 08/18/22 Multivitamin tablet) polyethylene glycol 3350 17 17 g PO BID constipation 60 days 09/14/22 gram/dose oral powder (Miralax) #2,040 grams cholecalciferol (vitamin D3) 50 50 mcg PO DAILY 90 days #90 caps 05/31/23 mcg (2,000 unit) capsule multivitamin 1 tab PO QAM 90 days #90 tabs 05/31/23 amoxicillin 875 mg-potassium 1 tab PO BID #14 tabs 09/02/23 clavulanate 125 mg tablet Allergies Allergy/AdvReac Type Severity Reaction Status Date / Time Seasonal Allergies Allergy Intermediate Unknown Verified 09/02/23 15:14 Review of Systems Review of Systems: Yes all other systems are reviewed and are negative Constitutional: Constitutional: Reports no additional constitutional complaints, Denies body ache(s), Denies chills, Denies fever(s), Denies headache(s) and Denies weakness Eyes: Eyes: Reports no additional eye complaints and Denies change in vision ENT: Reports system reviewed and no additional complaints, except as documented, Reports dental pain, Denies dizziness, Denies headache(s), Denies nasal congestion, Denies nasal discharge and Denies neck pain Cardiovascular: Cardiovascular: Reports no additional cardiovascular complaints, Denies chest pain, Denies leg edema and Denies dyspnea Respiratory: Respiratory: Reports no additional respiratory complaints, Denies cough and Denies dyspnea Gastrointestinal: Gastrointestinal: Reports no additional gastrointestinal complaints, Denies abdominal pain, Denies diarrhea, Denies nausea and Denies vomiting Genitourinary: Genitourinary: Denies urinary incontinence Musculoskeletal: Musculoskeletal: Reports no additional musculoskeletal complaints, Denies back pain, Denies arthralgias, Denies joint swelling, Denies neck pain, Denies numbness and Denies tingling Integumentary/Breasts: Skin/Breast: Reports system reviewed and no additional complaints, except as docu and Denies rash Neurologic: Reports system reviewed and no additional complaints, except as documented, Denies Abnormal speech present, Denies dizziness, Denies headache(s), Denies numbness, Denies tingling and Denies weakness PMFSH Past Medical History Attestation statement: The following information was validated with the patient. Source: old records reviewed and nursing notes reviewed Medical History Hepatitis C Anemia Screening for hypothyroidism Screening for hyperlipidemia Encounter to establish care Surgical History History of hand surgery Family History Family History Father No problems noted. Mother Heroin dependence Endocarditis Social History Social History Housing: Apartment Alcohol intake: never Patient Tobacco Use Status: Never used Tobacco e-Cigarette/Vaping Use: Never Used Substance Use Type: Heroin Advance Directives: No Advance Directives Information Provided: No Do you have a plan to hurt others: No Plan service: No Current occupational status: unemployed Cognitive needs: No Hearing needs: No Vision needs: No Physical Exam Vital Signs: Vital Signs: Last Vital Signs Temp 97.7 F 09/02/23 15:13 Pulse 99 09/02/23 15:13 Resp 18 09/02/23 15:13 BP 138/97 H 09/02/23 15:13 Pulse Ox 99 09/02/23 15:13 O2 Del Method Room Air 09/02/23 15:13 BMI result Body Mass Index 29.1 Const: General: cooperative, healthy appearing, comfortable and no acute distress Orientation/consciousness: patient oriented x3 Limitations: no limitations HEENT: Other: +extensive dental caries Mild right soft tissue swelling over right cheek No palpable abscess No trismus Head: Yes normal to inspection Ears: hearing grossly normal bilaterally General nose exam: Normal external nose present Face and sinus: Yes normal facial exam Mouth: Normal oral and palatal mucosa present Throat: Yes posterior oropharynx normal Eyes: General: appearance normal, both eyes and all related structures Pupils: Equal, round and reactive pupils present Neck: Neck: Yes normal visual inspection Chest: Chest palpation & inspection: normal inspection of the chest Resp: Effort & Inspection: normal respiratory effort Auscultation: clear to auscultation bilaterally Cardio: Rate: regular rate Rhythm: regular rhythm Peripheral pulses: Peripheral pulses 2+ throughout GI: Inspection: Yes normal to inspection Palpation (GI): Soft to palpation and nontender Auscultation: normal bowel sounds Back/Spine/Pelvis: Thoracic/Lumbar Spine: thoracic and lumbar spine normal to inspection Skin: General skin exam: no rashes or lesions noted Neuro: General: patient oriented x3, no focal motor deficits and normal sensation to monofilament Cranial nerves: Yes Equal, round and reactive pupils present Cognition (Neuro): normal cognition Speech: No Abnormal speech present Gait exam (Neuro): Normal gait present Motor exam (neuro): 5/5 motor strength present throughout Extrem: General: Yes normal to inspection Medical Decision Making Medical Decision Making MDM Narrative: 47 yo male with history liver disease here with right upper dental pain after biting on something on Sunday and feeling pain. Now feels area is swollen and painful. No diff breathing, diff swallowing, fevers, chills. Has not seen dentist. Does not smoke cigarettes, does smoke marijuana. Mild right soft tissue swelling over right cheek No palpable abscess No trismus Likely dental infection with local cellulitis. Low suspicion for ludwigs angina, dental abscess requiring CT imaging, labs Will send home with oral antibiotics, supportive measures Differential Diagnosis Differential Diagnoses: The differential diagnosis associated with the presentation includes see abive Admission/Observation Consideration of admission/observation: Escalation of care including admission/observation considered see above Independent Historian Clinical information obtained from an independent historian. History obtained from or confirmed by: Parent Tests considered The following testing was considered but not selected: see above Prescription Management I considered prescription management with: Antibiotic Social Determinants Patient?s care significantly limited by Social Determinants of Health including: Other Social Determinant of Health Discharge Plan Discharge Clinical Impression: Dental infection Patient Disposition: Home, Self-Care Instructions: Toothache (ED) Additional Instructions: Warm compresses to the right side of the face Soft foods, salt water gargles Take the antibiotics as prescribed Call your dentist tomorrow Prescriptions: New amoxicillin-pot clavulanate 875-125 mg tablet 1 tab PO BID Qty: 14 0RF No Action lamotrigine 100 mg tablet 100 mg PO DAILY methadone 10 mg/mL concentrate 10 mg PO DAILY Rx Instructions: 71 mg daily escitalopram oxalate 10 mg tablet 10 mg PO DAILY hydroxyzine HCl 25 mg tablet 25 mg PO BID PRN multivitamin [One Daily Multivitamin] Tablet 1 tab PO DAILY 90 Days Qty: 90 3RF polyethylene glycol 3350 [Miralax] 17 gram/dose powder 17 g PO BID 60 Days Qty: 2040 2RF multivitamin Tablet 1 tab PO QAM 90 Days Qty: 90 1RF cholecalciferol (vitamin D3) 50 mcg (2,000 unit) capsule 50 mcg PO DAILY 90 Days Qty: 90 1RF Referrals: Physician,Unknown J [Primary Care Provider] - 1 week Interventions: ED Discharge Assessment Last Done: 09/02/23 15:30 Print Language: Slovenian
[2023-09-02 15:13] VITALS: BP 138/97; PULSE 99; RESP 18; TEMP 36.5; O2SAT 99; BMI 29.1
[2023-09-02 15:30] VITALS: BP 138/97; PULSE 99; RESP 18; TEMP 36.7; O2SAT 99
== END 2023-09-02 15:31 | disposition home or self-care (01) ==
PROVIDERS: Emergency Provider Emergency Medicine
DX: K08.89 Other specified disorders of teeth and supporting structures (principal); F12.90 Cannabis use, unspecified, uncomplicated; Z79.899 Other long term (current) drug therapy
CPT/HCPCS: 99282; 99283

== ENCOUNTER 2024-12-04 09:12 | Outpatient (REF) | payer OTHER, SELFPAY ==
[2024-12-04 10:32] LABS: Hematocrit 40.3 % (42.0-52.0); Hemoglobin 14.2 g/dl (14.0-18.0); Mean Corpuscular HGB Conc 35.2 g/dl (31.0-36.0); Mean Corpuscular Hemoglobin 32.1 pg (27.0-33.0); Mean Corpuscular Volume 91.0 fL (80.0-98.0); NRBC Abs Auto 0.000 X10*3/uL (0.0-0.012); NRBC Pct Auto 0.0 /100WBC (0.0-0.2); Platelet Count 113 X10*3/uL (160-400); Red Blood Count 4.43 X10*6/uL (4.60-5.80); White Blood Count 6.6 X10*3/uL (4.8-10.8)
[2024-12-04 11:04] LABS: INTERNATIONAL NORM RATIO 1.1 (0.9-1.1); Prothrombin Time 12.8 SEC (10.9-12.4)
[2024-12-04 11:07] LABS: Alanine Aminotransferase 25 U/L (0-40); Albumin Level 4.6 g/dL (3.5-5.0); Alkaline Phosphatase 54 U/L (39-117); Anion Gap 11 (12-20); Aspartate Amino Transferase 30 U/L (5-37); Blood Urea Nitrogen 17 mg/dL (9-16); Calcium 9.7 mg/dL (8.4-10.2); Carbon Dioxide 28 mmol/L (22-29); Chloride 106 mmol/L (96-108); Estimated Glomerular Filt Rate > 60; Potassium 4.6 mmol/L (3.3-5.1); Sodium 140 mmol/L (135-145); Total Protein 6.8 g/dL (6.5-8.0)
[2024-12-04 11:31] LABS: Ferritin 104 ng/mL (20-250)
[2024-12-05 17:19] LABS: HCV RNA PCR Qn <1.18 NOT DETECTED Log IU/mL (NOT DETECTED); HCV RNA PCR Qn <15 NOT DETECTED IU/mL (NOT DETECTED)
== END 2024-12-04 09:13 | disposition home or self-care (01) ==
LOC: HO.LAB 09:12
PROVIDERS: Visit Provider Internal Medicine Gastroenterology
DX: K74.60 Unspecified cirrhosis of liver (principal); K59.00 Constipation, unspecified; R63.4 Abnormal weight loss
CPT/HCPCS: 36415; 80053; 82728; 85027; 85610; 87522; 87902; 99212

== ENCOUNTER 2024-12-04 09:12 | Outpatient (AMB) | payer OTHER, SELFPAY ==
--- NOTE | 2024-12-04 09:16 | A.OFFVIS_ITS ---
Vital Signs 12/04/24 09:21 Height 5 ft 4 in Weight 154 lb BMI 26.4 BP 121/54 L Blood Pressure Location Lt brachial Position Sitting Pulse 61 Pulse Oximetry (%) 98 Oxygen Delivery Method Room Air Intake Visit Reasons: weight loss Intake Note: Patient follow up for weight loss, joce was 05/31/2023 for Anemia and also patient have an Abdominal US results Patient cc: nauseas on and off, abdominal bloating and digestion problems. Denies any other GI issue for today visit. Patient needed new rx for Vit D and Miralax. Employee Relations Assistant Required: No Accompanied by: Self / Same As Patient Allergies Seasonal Allergies Allergy (Intermediate, Verified 01/15/25 12:25) Unknown Medication List - Last Reconciled 12/04/24 by Mony Meier MD amoxicillin-pot clavulanate 875-125 mg 1 tab PO BID cholecalciferol (vitamin D3) 50 mcg PO DAILY 90 days escitalopram oxalate 10 mg PO DAILY hydroxyzine HCl 25 mg PO BID PRN lamotrigine 100 mg PO DAILY methadone 10 mg PO DAILY multivitamin 1 tab PO QAM multivitamin (One Daily Multivitamin tablet) 1 tab PO DAILY 90 days polyethylene glycol 3350 (Miralax) 17 grams PO BID 60 days HPI HPI weight loss: Details: GI clinic visit for this 49 YM seen for FU of 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 Pt treated with Epclusa starting on 06/14/22 with a sustained viral response Last clinic visit 05/31/23 LABS IN [facility] : REVIEWED IMAGING STUDIES:? 01/06/22 ABD US SHOWED: Slightly echogenic liver but otherwise unremarkable. Gallbladder, head and body the pancreas and right kidney are unremarkable. Tail of the pancreas is not seen. TODAY'S VISIT: Patient follow up for weight loss, joce was 05/31/2023 for Anemia and also patient have an Abdominal US results Patient complains of nauseas on and off, abdominal bloating and digestion problems. Unable to FU since he moved and car broke down. Loosing wt due to stress - decreased appetite due to stress. Has trouble digesting - wakes up sick with Migraine TEJEDA. Has constipation since he ran out of Miralax. Has been exercising more and has lost weight (would like to go back to baseline wt of 160 lbs) Takes Miralax as needed for intermittent constipation. Complains of increased frequency and nocturia - advised to discuss with his PCP. Smokes Marijuana occasionally at night for anxiety. PAST VISITS: Complains of chronic constipation since childhood. Denies rectal bleeding. Finished Hepatitis C treatment 6 days ago. Has some Depression and talks to his therapist every other Sunday. Completed 2 months of treatment with Epclusa. Doing well. Has some depression and difficulty sleeping. Requesting a prescription for Miralax for constipation. Lost another 15 to 20 lbs and weighs around 220 lbs. Ankle edema has resolved and has some swelling in the legs Decreased methadone to 70 mg Wt has been stable and ankle edema has resolved. Denies using any drugs for the past 4 to 5 months Scheduled for an EGD and Colon in October, at [facility]. Nauseas and sensation of cold on and off with HCV medication. denies any other GI issues. Doing Ok - takes Epclusa at 6 am Has nausea at 10 or 11 Intermittent TEJEDA and feels cold. Had a few episodes of feeling hard time breathing resolves after he takes a few deep breaths. Has a FU appt at [facility] Hepatology in Nov, 2022. Ate a bunch of grapes and had nausea and vomiting. Wt loss of 14 lbs since last visit. Eating vegetables, fruits and chicken and no salt. Has a lot of anxiety and stress - partly due to his living situation. Living with his Mom's boyfriend. Pt was seen by Dispensary Technician at [facility]. No drugs x 2 months Methadone decreased to 103 mg. Stopped taking lactulose and is taking Miralax for constipation. Wt loss of 24 lbs - decreased appetite with poor PO intake Has been taking furosemide and not the spironolactone (smelt different and noted gynecomastia) Stressed out due to mouse infestation at home. Last drug use was 2-3 weeks ago. Liver hurts when he sits It takes a long time to urinate Also notes constipation. Notes jerking movements of both arms while asleep. States he stopped doing drugs - does it once and then no drugs for a long time Wakes up and feels dizzy and hungry and eats and drinks and goes back to sleep PAST VISIT: Diagnosed with Hep C 6 years ago. Hx of IV heroin use from age 32 yrs. Stopped using drugs after being diagnosed with Hep C? for 3 yrs. Relapsed when his Mom and started using drugs 1-2 times a month and continues to use it He is also on Methadone x 6 yrs. Became depressed after his mother and stopped exercising and gained a 100 lbs Complains of fatigue, lower extremity edema and some abdominal distension since Mar, 2021 or a little less. Patient denies symptoms of heartburn, dysphagia, nausea, vomiting. Stool has been dark and jennifer colored since he started using methadone. Appetite has gone down - only drinks almond milk. Complains of constipation and has a BM every 3-4 days Denies black stools or rectal bleeding. Patient denies major cardiac or pulmonary problems, loud snoring. May have undiagnosed sleep apnea Denies problems with anesthesia in the past - has had anesthesia twice in the past and threw up both times when he woke up. Denies being on chronic anticoagulation. Never smoked cigg and no ETOH since age 32 yrs (Binge drinking of hard liquor in the past) Patient denies known family history of colon polyps, colon cancer or other GI malignancies. A 2nd aunt had colon cancer and in her early 60's. 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 PAST EGD/COLONOSCOPY:? Denies having an EGD or colon in the past PAST GI HISTORY BY REVIEW OF MEDICAL RECORDS: 03/03/[address] PT WAS SEEN BY DR ACE:He presents for evaluation and treatment Hepatitis C. He had viral load 2,760,000 and had type 2 with F4 fibrosis score on 02/22/2022. He has platelets 104 and albumin 3.2 with some confusion at last visit (couldnt find office). He also complaints of swelling legs and abdomen but abdomen u/s in January didnt show ascites. He takes Methadone but hasnt had swelling until recently in legs. He has not been treated before for Hepatitis C. Assessment & Plan (1) Hepatitis C:?Comment: He has Hepatitis C F4 fibrosis and I am not sure if cirrhosis is compensated or not since he has some intermittent confusion he reports and has reported recent abdominal swelling ?developing ascites and has thrombocytopenia therefore I do not feel comfortable treating Hepatitis C unless liver disease is more clearly defined ?decompensating cirrhosis therefore would refer to GI. ?Code(s): B19.20 - Unspecified viral hepatitis C without hepatic coma ?Plan: No treatment at this time. Set up with GI for evaluation ?end stage liver disease /evaluate upper endoscopy [facility] Medical History Hepatitis C Anemia Screening for hypothyroidism Screening for hyperlipidemia Encounter to establish care Surgical History History of hand surgery Family History Father No problems noted. Mother Heroin dependence Endocarditis Social History Housing: Apartment Alcohol intake: never Patient Tobacco Use Status: Never used Tobacco e-Cigarette/Vaping Use: Never Used Substance Use Type: Heroin service: No Current occupational status: unemployed Cognitive needs: No Hearing needs: No Vision needs: No Review of Systems Const Reports fatigue, Denies fever(s), Reports headache(s) and Reports weight loss (wt loss of 20 lbs) Eyes Denies eye discharge and Denies irritation ENT Reports Normal hearing present, Denies dysphagia, Denies dizziness and Reports headache(s) Card Denies chest pain, Denies leg edema and Denies dyspnea on exertion Resp Denies cough, Denies dyspnea on exertion and Denies wheezing GI Reports abdominal pain, Denies change in bowel habits, Reports constipation, Denies dysphagia, Reports early satiety, Denies heartburn, Reports nausea, Reports vomiting and Reports other (loss of appetite and dark stools) Denies dysuria and Reports urinary frequency Musc Denies back pain, Reports arthralgias and Reports other (arthritis) Skin/Breast Denies pruritus, Denies rash and Denies jaundice Neuro Reports Normal hearing present, Denies Abnormal speech present, Denies dizziness, Reports headache(s) and Denies seizure-like activity Psych Reports anxiety, Reports depression and Denies panic attacks Endo Denies cold intolerance, Reports fatigue, Denies flushing and Denies heat intolerance Isreal/Lymph Denies easy bleeding and Denies easy bruising Aller/Immun Denies wheezing Physical Exam Vital Signs: Last Vital Signs Pulse 61 12/04/24 09:21 BP 121/54 L 12/04/24 09:21 Pulse Ox 98 12/04/24 09:21 Oxygen Delivery Method Room Air 12/04/24 09:21 BMI result Body Mass Index 26.4 Const General: healthy appearing, no acute distress and anxious Nutritional Appearance: overweight Orientation/consciousness: patient oriented x3 HEENT Head: Yes normal to inspection Ears: hearing grossly normal bilaterally Eyes Sclerae: sclerae normal Pupils: Equal, round and reactive pupils present Neck Neck: Yes normal visual inspection Chest Chest palpation & inspection: normal inspection of the chest Resp Effort & Inspection: normal respiratory effort Auscultation: clear to auscultation bilaterally Cardio Palpation: normal PMI Rate: regular rate Rhythm: regular rhythm Heart sounds: S1 normal heart sound present, S2 normal heart sound present and no murmurs GI Palpation (GI): Soft to palpation, nontender and No hepatosplenomegaly present Auscultation: normal bowel sounds Rectal Exam - Male: Yes deferred Skin General skin exam: no rashes or lesions noted Neuro General: patient oriented x3, gait normal and moves all extremities Cranial nerves: Yes Equal, round and reactive pupils present and Yes Normal hearing present Speech: No Abnormal speech present Psych Appearance: grossly normal Mental Status: mental status grossly normal Assessment & Plan Assessment & Plan (1) Cirrhosis of liver without ascites: Code(s): K74.60 - Unspecified cirrhosis of liver Category: Medical (2) Constipation: Code(s): K59.00 - Constipation, unspecified Category: Medical (3) Screening for colon cancer: Code(s): Z12.11 - Encounter for screening for malignant neoplasm of colon Category: Medical Plan 49 [address] Ace for evaluation of ESLD related to chronic hep C (genotye 2) infection complicated by lower extremity edema and suspected encephalopathy. Hepatitis C likely acquired by past IV drug abuse - patient continues to use drugs 1 to 2 times a month despite being on methadone for the past 6 years MELD Na score is 14 Pt has some confusion and has difficulty finding the right location for his appts Pt has morbid obesity with MARSH and Hep C Iron saturaton was 90% and also need to rule out hemochromatosis and other metabolic causes of chronic liver disease. Hemochromatosis DNA results: One copy each of the C282Y and H63D pathogenic variants in HFE gene was detected. Approximately 3%-8% of individuals with a biochemical diagnosis of hereditary hemochromatosis (HH) have this genotype. Therefore, this result is consistent with a diagnosis of HH in an individual with clinical evidence of HH. However, this genotype does not predict a diagnosis of HH in an asymptomatic individual, as only 0.5% to 2% of individuals with this genotype will develop symptoms or clinical evidence of this disorder. Disease diagnosis can only be made by demonstration of elevated iron stores. Pt is also followed at [facility] Hepatology clinic. 06/14/22 Pt was started on Epclusa x 12 weeks for Hepatitis C It was explained to the pt that he is at risk for decompensation during treatment and will need to be monitored closely with labs and clinic appts Pt handout on cirrhosis from [facility] was given to the patient at a previous visit. 08/18/22 denies ETOH or drug use for the past 4-5 months. 09/14/22 Finished Hep C treatment on 09/08/22 Normal LFTs and negative Hep C viral load - I will recheck in 6 months to rule out Hep C relapse. Repeat MELD Na score post treatment was 8 and declined to 7 Patient was advised to increase MiraLax to twice daily for constipation. 05/31/23 Pt advised to schedule an Abd US, EGD (screen for Enrique's) and colonoscopy (screening) On 10/26/23 @ 12:14 Lyndsey Ndiaye Wrote To Chelsi Pino per OR note, patient no-showed his procedure. On 05/31/23 @ 11:00 Chelsi Pino Wrote To Chelsi Pino Scheduled patient in the office today for a colo, paper work given, patient is aware of the need for transportation. Chelsi Pino completed item. 12/04/24 Pt returns after a hiatus of 18 months - complains of nausea, abdominal bloating and digestion problems. Unable to FU since he moved and car broke down. Loosing wt due to stress - decreased appetite due to stress. Has trouble digesting - wakes up sick with Migraine TEJEDA. Has constipation since he ran out of Miralax - Takes Miralax as needed for intermittent constipation. Smokes Marijuana occasionally at night for anxiety. Pt advised to check labs and schedule an Abd US He will be scheduled for an EGD (nausea, screen for varices) and colonoscopy (screening) FU appt in 6 weeks Orders: Orders Prothrombin Time INR 10/02/25 K74.60 - Unspecified cirrhosis of liver US abdomen limited 12/04/24 K74.60 - Unspecified cirrhosis of liver Complete Blood Count no Diff 12/04/24 K74.60 - Unspecified cirrhosis of liver Comprehensive Met. Panel 12/04/24 K74.60 - Unspecified cirrhosis of liver Ferritin 12/04/24 K74.60 - Unspecified cirrhosis of liver Referrals GI Procedure Notification Z12.11 - Encounter for screening for malignant neoplasm of colon, K74.60 - Unspecified cirrhosis of liver Medications: Changed From polyethylene glycol 3350 17 grams PO BID 60 days 2,040 grams 2RF constipation K59.00 - Constipation, unspecified To polyethylene glycol 3350 (Miralax) 17 grams PO BID 3,060 grams 1RF constipation 90 days K59.00 - Constipation, unspecified Refilled cholecalciferol (vitamin D3) 50 mcg PO DAILY 90 caps 1RF 90 days R79.89 - Other specified abnormal findings of blood chemistry Coding Level of Care Code Est Pt Level 4 (92103) Diagnoses Cirrhosis of liver without ascites K74.60 Constipation K59.00 Screening for colon cancer Z12.11 Time Spent (min) 21
[2024-12-04 09:21] VITALS: BP 121/54; PULSE 61; O2SAT 98; BMI 26.4
--- OUTSIDE RECORDS SUMMARY | 2024-12-04 10:01 | XMS_ITS | Encounter Summary ---
Author Organization [facility] Address [address] [place] [address] Care Team Providers Care Plant Director Name Role Phone Priti Osullivan Primary Care Provider [phone] Encounter Details Date Type Department Care Team (Late st Contact Info) Description 05/24/2022 Orders Only [facility] Xray [address] [place] [address] Gaurav Louis MD [address] [place] [address] Social History Tobacco Use Types Packs/Day Years Used Date Smoking Tobacco: Never Smokeless Tobacco: Never Alcohol Use Standard Drinks/Week Comments Not Currently 0 (1 standard drink = 0.6 oz pur e alcohol) Sex and Gender Information Value Date Recorded Sex Assigned at Male 05/20/2022 7:24 PM EDT Legal Sex Male 2:40 PM EST Gender Identity Male 05/20/2022 7:24 PM EDT Sexual Orientation Straight 05/20/2022 7: 24 PM EDT documented as of this encounter Plan of Treatment Not on file documented as of this encounter Visit Diagnoses Not on filedocumented in this encounter Care Teams Plant Director Relationship Specialty Start Date End Date Priti Osullivan [address] [place] [address] [place] [address] PCP - General Internal Medicine 05/05/22 documented as of this encounter
--- OUTSIDE RECORDS SUMMARY | 2024-12-04 10:01 | XMS_ITS | Patient Health Record ---
Author Organization [facility] Address [address] [place] [address] Care Team Providers Care Country Singer Name Role Phone Rajeev FLORES, Joe Primary Care Provider Lui Hawley Jr Unavailable Reason For Referral No Information Medications Medication SIG (Take, Route, Fr equency, Duration) Notes Start Date End Date Status Methadone HCl 80 mg daily Acti ve Social History Tobacco Use: Social History Observation Description Date Details (start date - stop date) Never Smoker NA - NA Tobacco Use/Smoking Question Answer Notes Patient is a nonsmoker Alcohol Screen Question Answer Notes Did you have a drink containing alcohol in the p ast year? No Points 0 Interpretation Negative Problems Problem Type SNOMED Code ICD Code Onset Dates Problem Status W/U Status Risk Notes Problem 16563263 Chronic fatigue (R53.82) Active confirmed Problem 38979422 Hepatitis C virus infection without hepatic coma, unspecified chronicity (B19.20) Active confirmed Plan Of Treatment Pending Test Test Name Order Date LIVER PROFILE 09/20/2017 TSH (THYROID STIMULATING HORMONE) 2017 CBC w DIFF 09/20/2017 US ABD 09/20/2017 HCV LIVER FIBROSIS, FIBRO TEST 8 HCV RNA QN PROG TO GENOTYPE 09/20/2017 Insurance Providers Payer Name Payer Address Payer Phone Subscriber Number Group Number Insured Name Patient Relationship to Insured Coverage Start Date Coverage End Date [place] [address] [place] [address] [id number] MAGEN GAUTAM Self - patient is the insured MEDICAID OF [facility] [address] [place] [phone] [id number] MAGEN GAUTAM Self - patient is the insured Medical (General) History Medical History History ICD Code hepatitis C depression narcotic dependence Surgical History Surgery Date(Month/Year) finger surgery
--- OUTSIDE RECORDS SUMMARY | 2024-12-04 10:01 | XMS_ITS | Clinical Summary ---
Author Organization [facility] Address [address] [place] [address] Care Team Providers Care Sap Business Analyst Name Role Phone Priti Osullivan Primary Care Provider [phone] Allergies No known active allergies Medications triamcinolone acetonide (KENALOG) 0.1% cream Apply topically to the affected area once a day. 2 Active temazepam (RESTORIL) 7.5 mg capsule Take 7.5 mg by mouth nightly as needed. 3 Active polyethylene glycol 3350 (MIRALAX) powder SMARTSI Gram(s) By Mouth Daily PRN 2 Active multivitamin (THERAGRAN) tablet Take 1 tablet by mouth once a day. 3 Active multivit with minerals/lutein (MULTIVITAMIN 50 PLUS ORAL) Active lamoTRIgine (LaMICtal) 100 mg tablet Take 100 mg by mouth once a day. 3 Active hydrOXYzine (ATARAX) 50 mg tablet Take 50 mg by mouth 3 times a day as needed. 2 Active furosemide (LASIX) 20 mg tablet Take 40 mg by mouth once a day. 3 Active cholecalciferol (VITAMIN D3) 250 mcg (10,000 unit) capsule Take 10,000 Units by mouth 2 times a week. 3 Active polyethylene glycol (COLYTE) solutionIndicat ions:Screen for colon cancer OK to substitute Colyte/ Gavelyte/ Golytly/ Nulyte. Take according to instructions provided by physician. 4000 mL 3 Active Active Problems No known active problems Social History Tobacco Use Types Packs/Day Years [...] Orientation Straight 05/20/2022 7: 24 PM EDT Last Filed Vital Signs Vital Sign Reading Time Taken Comments Blood Pressure 136/83 05/23/2022 1:58 PM EDT Pulse 94 05/23/2022 1:58 PM EDT Temperature 36.1 C (97 F) 05/23/2022 1:58 PM EDT Respiratory Rate 20 05/23/2022 1:58 PM EDT Oxygen Saturation 97% 05/23/2022 1:58 PM EDT Inhaled Oxygen Concentration - - Weight 109.6 kg (241 lb 10 oz) 05/23/2022 1:58 P M EDT Height 170.2 cm (5' 7 ) 05/23/2022 1:58 PM EDT Body Mass Index 37.84 05/23/2022 1:58 PM EDT Plan of Treatment Health Maintenance Due Date Last Done Comments Cologuard 1977 Colon Cancer Screening 1977 Colonoscopy 1977 FOBT / Fit Test 1977 Sigmoidoscopy 1977 Hepatitis B Vaccines (1 of 3 - 19+ 3-dose series) 1996 DTaP,Tdap,and Td Vaccines (1 - Tdap) 09/14/1999 Alcohol/Substance Use Screening 03/05/2024 Depression Screening and Follow-Up 03/05/2024 Social Drivers of Health Megha ual Screening 03/05/2024 COVID-19 Vaccine (1 - 2023-2 5 season) 2024 Influenza Vaccine (#1) 2024 RSV Vaccine (60+ years old a nd patients) (1 - 1-dose 75+ series) 2052 HIV Screening Completed 05/23/2022 Pneumococcal Vaccine: Pediat paula (0-5 Years) and At-Risk Patients (6-50 Years) Aged Out No longer eligible b ased on patient's age [place] [id number] [facility] [place] [id number] [place] [address] Care Teams Sap Business Analyst Relationship Specialty Start Date End Date Priti Osullivan [address] [facility] [place] [address] PCP - General Internal Medicine 05/05/22
== END 2024-12-04 09:45 | disposition home or self-care (01) ==
LOC: HO.HGI 09:12
PROVIDERS: Visit Provider Internal Medicine Gastroenterology
DX: K74.60 Unspecified cirrhosis of liver (principal); K59.00 Constipation, unspecified; Z12.11 Encounter for screening for malignant neoplasm of colon
CPT/HCPCS: 99214

== ENCOUNTER 2025-01-15 12:21 | Outpatient (AMB) | payer OTHER, SELFPAY ==
--- NOTE | 2025-01-15 12:26 | MHC.OFFVIS ---
Vital Signs 01/15/25 12:31 Height 5 ft 4 in Weight 153 lb BMI 26.3 BP 130/56 L Blood Pressure Location Rt brachial Position Sitting Pulse 60 Pulse Source Pulse Oximeter Pulse Oximetry (%) 97 Oxygen Delivery Method Room Air Intake Visit Reasons: follow up Intake Note: Patient follow up for Cirrhosis of liver without ascites and lab results. Patient cc: Pt denies any new GI sx or concerns at this time. States that he was never able to receive the miralax from the pharmacy as the insurance does not cover it. He has increased his natural fiber intake via dietary adjustments and has been doing OK. He does express some concerns pertaining to anxiety and depression and states that he feels it is affecting his overall health. 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 Pt treated with Epclusa starting on 06/14/22 with a sustained viral response LABS [facility] : REVIEWED IMAGING STUDIES:? 01/06/22 ABD US SHOWED: Slightly echogenic liver but otherwise unremarkable. Gallbladder, head and body the pancreas and right kidney are unremarkable. Tail of the pancreas is not seen. TODAY'S VISIT: Patient denies any new GI sx or concerns at this time. States that he was never able to receive the miralax from the pharmacy as the insurance does not cover it. He has increased his natural fiber intake via dietary adjustments and has been doing OK. He does express some concerns pertaining to anxiety and depression and states that he feels it is affecting his overall health. Lab results were reviewed with the patient Not happy with his living situation and causing a lot of stress - lives in [place] Notes indigestion - wakes up at night with a need to burp and sometimes has vomiting - usually water. Constipation is better since he is eating fruit (bananas and citrus) at 8 pm which helps him have a BM in the morning Has a BM every morning Dentist told him teeth have rotted since his metabolism slowed - and getting his teeth fixed. On Methadone 64 mg a day - therapist advised not to lower the dose due to depression PAST VISITS: Patient follow up for weight loss, joce was 05/31/2023 for Anemia and also patient have an Abdominal US results Patient complains of nauseas on and off, abdominal bloating and digestion problems. Unable to FU since he moved and car broke down. Loosing wt due to stress - decreased appetite due to stress. Has trouble digesting - wakes up sick with Migraine TEJEDA. Has constipation since he ran out of Miralax. Has been exercising more and has lost weight (would like to go back to baseline wt of 160 lbs) Takes Miralax as needed for intermittent constipation. Complains of increased frequency and nocturia - advised to discuss with his PCP. Smokes Marijuana occasionally at night for anxiety. Complains of chronic constipation since childhood. Denies rectal bleeding. Finished Hepatitis C treatment 6 days ago. Has some Depression and talks to his therapist every other Sunday. Completed 2 months of treatment with Epclusa. Doing well. Has some depression and difficulty sleeping. Requesting a prescription for Miralax for constipation. Lost another 15 to 20 lbs and weighs around 220 lbs. Ankle edema has resolved and has some swelling in the legs Decreased methadone to 70 mg Wt has been stable and ankle edema has resolved. Denies using any drugs for the past 4 to 5 months Scheduled for an EGD and Colon in October, at [facility]. Nauseas and sensation of cold on and off with HCV medication. denies any other GI issues. Doing Ok - takes Epclusa at 6 am Has nausea at 10 or 11 Intermittent TEJEDA and feels cold. Had a few episodes of feeling hard time breathing resolves after he takes a few deep breaths. Has a FU appt at [facility] Hepatology in Nov, 2022. Ate a bunch of grapes and had nausea and vomiting. Wt loss of 14 lbs since last visit. Eating vegetables, fruits and chicken and no salt. Has a lot of anxiety and stress - partly due to his living situation. Living with his Mom's boyfriend. Pt was seen by Demolition Engineer at [facility]. No drugs x 2 months Methadone decreased to 103 mg. Stopped taking lactulose and is taking Miralax for constipation. Wt loss of 24 lbs - decreased appetite with poor PO intake Has been taking furosemide and not the spironolactone (smelt different and noted gynecomastia) Stressed out due to mouse infestation at home. Last drug use was 2-3 weeks ago. Liver hurts when he sits It takes a long time to urinate Also notes constipation. Notes jerking movements of both arms while asleep. States he stopped doing drugs - does it once and then no drugs for a long time Wakes up and feels dizzy and hungry and eats and drinks and goes back to sleep PAST VISIT: Diagnosed with Hep C 6 years ago. Hx of IV heroin use from age 32 yrs. Stopped using drugs after being diagnosed with Hep C? for 3 yrs. Relapsed when his Mom and started using drugs 1-2 times a month and continues to use it He is also on Methadone x 6 yrs. Became depressed after his mother and stopped exercising and gained a 100 lbs Complains of fatigue, lower extremity edema and some abdominal distension since Mar, 2021 or a little less. Patient denies symptoms of heartburn, dysphagia, nausea, vomiting. Stool has been dark and jennifer colored since he started using methadone. Appetite has gone down - only drinks almond milk. Complains of constipation and has a BM every 3-4 days Denies black stools or rectal bleeding. Patient denies major cardiac or pulmonary problems, loud snoring. May have undiagnosed sleep apnea Denies problems with anesthesia in the past - has had anesthesia twice in the past and threw up both times when he woke up. Denies being on chronic anticoagulation. Never smoked cigg and no ETOH since age 32 yrs (Binge drinking of hard liquor in the past) Patient denies known family history of colon polyps, colon cancer or other GI malignancies. A 2nd aunt had colon cancer and in her early 60's. 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 PAST EGD/COLONOSCOPY:? Denies having an EGD or colon in the past PAST GI HISTORY BY REVIEW OF MEDICAL RECORDS: 03/03/22 PT WAS SEEN BY DR ACE:He presents for evaluation and treatment Hepatitis C. He had viral load 2,760,000 and had type 2 with F4 fibrosis score on 02/22/2022. He has platelets 104 and albumin 3.2 with some confusion at last visit (couldnt find office). He also complaints of swelling legs and abdomen but abdomen u/s in January didnt show ascites. He takes Methadone but hasnt had swelling until recently in legs. He has not been treated before for Hepatitis C. Assessment & Plan (1) Hepatitis C:?Comment: He has Hepatitis C F4 fibrosis and I am not sure if cirrhosis is compensated or not since he has some intermittent confusion he reports and has reported recent abdominal swelling ?developing ascites and has thrombocytopenia therefore I do not feel comfortable treating Hepatitis C unless liver disease is more clearly defined ?decompensating cirrhosis therefore would refer to GI. ?Code(s): B19.20 - Unspecified viral hepatitis C without hepatic coma ?Plan: No treatment at this time. Set up with GI for evaluation ?end stage liver disease /evaluate upper endoscopy [facility] Medical History Hepatitis C Anemia Screening for hypothyroidism Screening for hyperlipidemia Encounter to establish care Surgical History History of hand surgery Family History Father No problems noted. Mother Heroin dependence Endocarditis Social History Housing: Apartment Alcohol intake: never Patient Tobacco Use Status: Never used Tobacco e-Cigarette/Vaping Use: Never Used Substance Use Type: Heroin service: No Current occupational status: unemployed Cognitive needs: No Hearing needs: No Vision needs: No Review of Systems Const All systems reviewed & are unremarkable except as noted in HPI and below Physical Exam Vital Signs: Last Vital Signs Pulse 60 01/15/25 12:31 BP 130/56 L 01/15/25 12:31 Pulse Ox 97 01/15/25 12:31 Oxygen Delivery Method Room Air 01/15/25 12:31 BMI result Body Mass Index 26.3 Const General: healthy appearing, no acute distress and anxious Nutritional Appearance: overweight Orientation/consciousness: patient oriented x3 HEENT Head: Yes normal to inspection Ears: hearing grossly normal bilaterally Eyes Sclerae: sclerae normal Pupils: Equal, round and reactive pupils present Neck Neck: Yes normal visual inspection Chest Chest palpation & inspection: normal inspection of the chest Resp Effort & Inspection: normal respiratory effort Auscultation: clear to auscultation bilaterally Cardio Palpation: normal PMI Rate: regular rate Rhythm: regular rhythm Heart sounds: S1 normal heart sound present, S2 normal heart sound present and no murmurs GI Palpation (GI): Soft to palpation, nontender and No hepatosplenomegaly present Auscultation: normal bowel sounds Rectal Exam - Male: Yes deferred Skin General skin exam: no rashes or lesions noted Neuro General: patient oriented x3, gait normal and moves all extremities Cranial nerves: Yes Equal, round and reactive pupils present Psych Appearance: grossly normal Mental Status: mental status grossly normal Assessment & Plan Assessment & Plan (1) Cirrhosis of liver without ascites: Code(s): K74.60 - Unspecified cirrhosis of liver Category: Medical (2) Constipation: Code(s): K59.00 - Constipation, unspecified Category: Medical (3) Dyspepsia: Code(s): R10.13 - Epigastric pain Category: Medical Plan 49 [address] Ace for evaluation of ESLD related to chronic hep C (genotye 2) infection complicated by lower extremity edema and suspected encephalopathy. Hepatitis C likely acquired by past IV drug abuse - patient continues to use drugs 1 to 2 times a month despite being on methadone for the past 6 years MELD Na score is 14 Pt has some confusion and has difficulty finding the right location for his appts Pt has morbid obesity with MARSH and Hep C Iron saturaton was 90% and also need to rule out hemochromatosis and other metabolic causes of chronic liver disease. Hemochromatosis DNA results: One copy each of the C282Y and H63D pathogenic variants in HFE gene was detected. Approximately 3%-8% of individuals with a biochemical diagnosis of hereditary hemochromatosis (HH) have this genotype. Therefore, this result is consistent with a diagnosis of HH in an individual with clinical evidence of HH. However, this genotype does not predict a diagnosis of HH in an asymptomatic individual, as only 0.5% to 2% of individuals with this genotype will develop symptoms or clinical evidence of this disorder. Disease diagnosis can only be made by demonstration of elevated iron stores. Pt is also followed at [facility] Hepatology clinic. 06/14/22 Pt was started on Epclusa x 12 weeks for Hepatitis C It was explained to the pt that he is at risk for decompensation during treatment and will need to be monitored closely with labs and clinic appts Pt handout on cirrhosis from CTD was given to the patient at a previous visit. 08/18/22 denies ETOH or drug use for the past 4-5 months. 09/14/22 Finished Hep C treatment on 09/08/22 Normal LFTs and negative Hep C viral load - I will recheck in 6 months to rule out Hep C relapse. Repeat MELD Na score post treatment was 8 and declined to 7 Patient was advised to increase MiraLax to twice daily for constipation. 05/31/23 Pt advised to schedule an Abd US, EGD (screen for Enrique's) and colonoscopy (screening) On 10/26/23 @ 12:14 Lyndsey Ndiaye Wrote To Chelsi Pino per OR note, patient no-showed his procedure. On 05/31/23 @ 11:00 Chelsi Pino Wrote To Chelsi Pino Scheduled patient in the office today for a colo, paper work given, patient is aware of the need for transportation. Chelsi Pino completed item. 01/15/25 Notes indigestion - wakes up at night with a need to burp and sometimes has vomiting - usually water. Constipation is better since he is eating fruit (bananas and citrus) at 8 pm which helps him have a BM in the morning Has a BM every morning Patient advised to take omeprazole once a day for indigestion and lactulose p.r.n. for constipation Advised to schedule an EGD (screen for Enrique's) and colonoscopy (screening) Abd US scheduled on 01/19/25 FU appt in 4 months Orders: Referrals GI Procedure Notification R10.13 - Epigastric pain, Z12.11 - Encounter for screening for malignant neoplasm of colon Medications: New lactulose 15 mL PO DAILY PRN 900 mL 1RF constipation 60 days K59.00 - Constipation, unspecified omeprazole 10 mg PO DAILY 30 caps 3RF 30 days R10.13 - Epigastric pain Coding Level of Care Code Est Pt Level 4 (56103) Complex EM visit Add On G2211 Diagnoses Cirrhosis of liver without ascites K74.60 Constipation K59.00 Dyspepsia R10.13 Time Spent (min) 20
[2025-01-15 12:31] VITALS: BP 130/56; PULSE 60; O2SAT 97; BMI 26.3
--- OUTSIDE RECORDS SUMMARY | 2025-01-15 15:31 | XMS_ITS | Patient Health Record ---
Author Organization [facility] Address [address] [place] [address] Care Team Providers Care Job Training Supervisor Name Role Phone Rajeev FLORES, Joe Primary Care Provider Lui Hawley Jr Unavailable [phone] Reason For Referral No Information Medications Medication [...] Problem Status W/U Status Risk Notes Problem Chronic fatigue syndrome (08991524) Chronic fatigue (R53.82) Active confirmed Problem Viral hepatitis type C (19897880) Hepatitis C virus infection without hepatic coma, [...] Start Date Coverage End Date MEDICARE OF [employer] [address] [place] [address] [id number] MGAEN GAUTAM Self - patient is the insured MEDICAID OF [facility] [address] [place] [phone] [id number] MAGEN GAUTAM Self - patient is the insured Medical (General) History Medical History History ICD Code hepatitis C depression narcotic dependence Surgical History Surgery Date(Month/Year) finger surgery
--- OUTSIDE RECORDS SUMMARY | 2025-01-15 15:31 | XMS_ITS | Encounter Summary ---
Author Organization [facility] Address [address] [place] [address] Care Team Providers Care Trust Administrative Assistant Name Role Phone Priti Osullivan Primary Care Provider [phone] Encounter Details Date Type Department Care Team (Late st Contact Info) Description 05/24/[address] [facility] Xray [address] [place] [address] Gaurav Louis MD [address] [place] [address] Social History Tobacco Use Types Packs/Day Years [...] on filedocumented in this encounter Care Teams Trust Administrative Assistant Relationship Specialty Start Date End Date Priti Osullivan [address] [place] [address] [place] [address] PCP - General Internal Medicine 05/05/22 documented as of this encounter
--- OUTSIDE RECORDS SUMMARY | 2025-01-15 15:32 | XMS_ITS | Clinical Summary ---
Author Organization [facility] Address [address] [place] [address] Care Team Providers Care Card Filer Name Role Phone Priti Osullivan Primary Care Provider [phone] Allergies No known active allergies Medications triamcinolone [...] ual Screening 03/05/2024 COVID-19 Vaccine (1 - 2024-2 6 season) 2024 Influenza Vaccine (#1) 2024 HIV Screening Completed 05/23/2022 Pneumococcal Vaccine: Pediat paula (0-5 Years) and At-Risk Patients (6-50 Years) Aged Out No longer eligible b ased on patient's age to complete this topic Insurance [facility] [place] [id number] [place] [address] [address] [facility] [place] [address] Care Teams Card Filer Relationship Specialty Start Date End Date Priti Osullivan [address] [place] [address] PCP - General Internal Medicine 05/05/22
== END 2025-01-15 13:00 | disposition home or self-care (01) ==
LOC: HO.HGI 12:21
PROVIDERS: Visit Provider Internal Medicine Gastroenterology
DX: K74.60 Unspecified cirrhosis of liver (principal); K59.00 Constipation, unspecified; R10.13 Epigastric pain
CPT/HCPCS: 99214; G2211

== ENCOUNTER → 2025-01-15 12:21 | Outpatient (BNVA) | payer OTHER, SELFPAY | PROVIDERS: Visit Provider Internal Medicine Gastroenterology | DX: R10.13 Epigastric pain (principal); K74.60 Unspecified cirrhosis of liver; K59.00 Constipation, unspecified | CPT/HCPCS: 99212 ==